=== PATIENT | female | born 1955 | race Caucasian/White ===

== ENCOUNTER → 2018-07-02 13:40 | Outpatient (CLI) | payer MEDICAID, SELFPAY ==
[2018-06-12 12:01] VITALS: BMI 31.6
--- NOTE | 2018-07-02 13:41 | ECHOCS_ITS ---
Reason For Study: Palpitations Procedure This was a 2D Doppler, Color Flow transthoracic echocardiogram. Contrast injection was performed. The study was technically difficult. Exam performed in department. Left Ventricle Normal size and thickness. The estimated ejection fraction is 65 %. Normal diastology for age. No regional wall motion abnormalities noted. Right Ventricle Normal size and thickness. Normal systolic function. Atria Normal left atrium. Normal right atrium. Normal atrial septum. Mitral Valve The mitral valve is structurally normal. No prolapse or stenosis seen. Tricuspid Valve Normal tricuspid valve. Trivial tricuspid valve insufficiency. Right ventricular systolic pressure estimated to be 27 mmHg. Aortic Valve Trisinus/trileaflet aortic valve. Normal aortic valve. Pulmonic Valve Normal pulmonic valve. Great Vessels Normal aortic root. Normal arch. Normal inferior vena cava. Inferior vena cava collapse with sniff. Pericardium/Pleural No pericardial effusion. Medication Definity0.6ml given slow IV push to enhance endocardial definition. MMode/2D Measurements & Calculations LVIDd: 4.9 cm IVSd: 1.0 cm Ao root diam: 3.1 cm LVIDs: 3.4 cm LVPWd: 1.1 cm LA dimension: 3.0 cm RVDd: 3.4 cm FS: 31.6 % LAV(MOD-bp): 46.5 ml LVAd ap4: 33.8 cm2 SV(MOD-sp4): 78.3 ml LAV(MOD-bp) Indexed: 23.6 ml/m2 EDV(MOD-sp4): 109.1 ml LAV(MOD-sp2): 59.0 ml EDV(sp4-el): 113.5 ml LAV(MOD-sp4): 34.4 ml LVAs ap4: 15.7 cm2 ESV(MOD-sp4): 30.9 ml ESV(sp4-el): 29.7 ml EF(MOD-sp4): 71.7 % EF(sp4-el): 73.8 % SV(sp4-el): 83.8 ml LA A4 area: 15.9 cm2 RA A4 area: 16.3 cm2 Doppler Measurements & Calculations MV E max neo: 78.9 cm/sec Lat Peak E' Neo: 7.4 cm/sec Med Peak E' Neo: 6.3 cm/sec MV A max neo: 60.4 cm/sec E/E' lat: 10.7 E/E' med: 12.6 MV E/A: 1.3 Ao V2 max: 126.8 cm/sec LV V1 max: 108.3 cm/sec PA V2 max: 82.0 cm/sec Ao max P.4 mmHg LV V1 max P.7 mmHg Ao V2 mean: 90.0 cm/sec Ao mean P.5 mmHg Ao V2 VTI: 26.6 cm TR max neo: 235.6 cm/sec TR max P.2 mmHg Interpretation Summary The estimated ejection fraction is 65 %. Normal diastology for age. Right ventricular systolic pressure estimated to be 27 mmHg. The study was technically difficult. There is no comparison study available. Contrast injection was performed. Ordering Physician: Daryl Jordan Referring Physician: Brayan Person Performed By: Radha Cohn, DORA, RVT
== END ==
PROVIDERS: Family Provider Family Medicine; PCP Family Medicine; Referring Provider Internal Medicine Cardiovascular Disease; Visit Provider Internal Medicine Cardiovascular Disease
DX: I49.3 Ventricular premature depolarization (principal)
CPT/HCPCS: 93306; Q9957; A4216; C8929

== ENCOUNTER → 2018-07-06 09:05 | Outpatient (CLI) | payer MEDICAID, SELFPAY ==
[2018-06-12 12:01] VITALS: BMI 31.6
--- NOTE | 2018-07-06 09:07 | STEWCON_ITS ---
Reason For Study: CHEST PAIN Stress Results Protocol: Stress Echocardiogram Maximum Predicted HR: 158 bpm Target HR: 134 bpm % Maximum Predicted HR: 84 % Heart Stage Duration Rate BP Comment (mm:ss) (bpm) DEFINITY 0.8 ML USED DURING STRESS, RARE PVC, BASELINE 54 140/84VENTRICULAR COUPLET BENNY PROTOCOL- STAGE 1 3:00 99 132/80RARE PVC BENNY PROTOCOL- STAGE 2 3:00 112 138/82 BENNY PROTOCOL- STAGE 3 3:00 133 150/80SL SOB, LEG FATIGUE RECOVERY 65 126/84 Stress Duration: 9:00 mm:ss Maximum Stress HR: 133 bpm Baseline Echocardiogram Findings The estimated ejection fraction is 65 %. Stress Echo Wall motion Data Resting WM Intermediate WM Stress WM Resting Wall Motion Wall Motion Stress No regional wall motion No regional wall motion abnormalities noted. abnormalities noted. EKG Data The baseline ECG displays normal sinus rhythm. The patient exercised according to the regular Benny protocol for a total duration of 9:00. The maximum heart rate attained was 133 beats per minute. This was 84% of maximum predicted heart rate. The patient exercised into stage 5 of the Benny protocol. During stress, there were no ST or T wave changes noted to suggest ischemia. No clinical angina was noted. Interpretation Summary The estimated ejection fraction is 65 %. Normal, adequate, treadmill echocardiogram. Negative for ischemia by EKG and echocardiographic criteria. No anginal symptoms noted. Rare PVCs noted. Appropriate blood pressure response to exercise. Average exercise capacity for age. Final LVEF of 75%. Decreased sensitivity due to poor echo windows requiring Definity enhancing agent. Test terminated due to attainment of target heart rate and leg fatigue as well as slight shortness of breath. No complications. Contrast injection was performed. The study was technically difficult. Ordering Physician: Daryl Jordan Referring Physician: Daryl Jordan Performed By: Radha Cohn, DORA, RVT
== END ==
PROVIDERS: Family Provider Family Medicine; PCP Family Medicine; Referring Provider Internal Medicine Cardiovascular Disease; Visit Provider Internal Medicine Cardiovascular Disease
DX: I49.3 Ventricular premature depolarization (principal)
CPT/HCPCS: 93017; 93350; Q9957; A4216; C8928

== ENCOUNTER → 2018-07-23 14:17 | Outpatient (CLI) | payer MEDICAID, SELFPAY ==
[2018-07-23 13:02] VITALS: BMI 31.6
[2018-07-23 16:40] LABS: Hematocrit 42.8 % (37-47); Hemoglobin 14.2 g/dl (12.0-15.0); Mean Corp Hgb Conc 33.2 g/gl (32-36); Mean Corpuscular Hgb 28.7 pg (27.0-32.0); Mean Corpuscular Volume 86.5 fL (81-99); Mean Platelet Vol. 9.5 fl (6.2-12.0); Platelet Count 269 K/mm3 (150-450); RBC Distribution Width CV 13.4 % (11.6-14.6); RBC Distribution Width SD 41.9 fl (35.1-43.9); Red Blood Count 4.95 M/mm3 (4.2-5.4); White Blood Count 9.2 K/mm3 (4.4-11.0)
[2018-07-23 16:46] LABS: Partial Thromboplast Time 24.7 Seconds (24.1-36.2); Prothrombin Time (Protime)PT. 12.8 SECONDS (11.7-14.9)
[2018-07-23 16:51] LABS: Scan Indicated on CBC? Y/N NO
[2018-07-23 17:03] LABS: Anion Gap 9 (5-15); BUN 10 mg/dL (7-18); BUN/Creat Ratio 11.6 RATIO (10-20); Calcium,Total 9.1 mg/dL (8.5-10.1); Chloride 105 mmol/L (98-107); Creatinine, Serum 0.86 mg/dL (0.55-1.02); EST Glomerular Filtration Rate 71 mL/min (>60); Est Glom Filt Rate - Afr Amer 86 mL/min (>60); Glucose 82 mg/dL (74-106); Potassium 4.4 mmol/L (3.5-5.1); Sodium Level 142 mmol/L (136-145)
== END ==
PROVIDERS: Family Provider Family Medicine; PCP Family Medicine; Visit Provider Internal Medicine Cardiovascular Disease
DX: I49.3 Ventricular premature depolarization (principal); I49.9 Cardiac arrhythmia, unspecified; R06.02 Shortness of breath; R07.9 Chest pain, unspecified
CPT/HCPCS: 36415; 80048; 85027; 85610; 85730

== ENCOUNTER 2018-07-26 06:42 | Day surgery (SDC) | payer MEDICAID, SELFPAY ==
[2018-06-12 12:01] VITALS: BMI 31.6
[2018-07-23 13:02] VITALS: BMI 31.6
--- NOTE | 2018-07-23 14:34 | RAD_ITS ---
HISTORY: SOB/dyspneaPain in upper right lung EXAM: XR Chest 2 Views: COMPARISON: None FINDINGS: # of images incl. paperwork: 2 LINES/DEVICES: None. LUNGS: Radiographically clear. No consolidation, edema or effusion. No pneumothorax. MEDIASTINUM AND CARDIOVASCULAR STRUCTURES: Cardiac silhouette not enlarged. Central airways and mediastinal contour are unremarkable. BONES AND SOFT TISSUES: Unremarkable. RAD/Chest PA and Lateral IMPRESSION: No radiographic evidence of acute cardiopulmonary disease. at 1544 Reported and signed by: Enzo Castillo MD Electronically Signed: Enzo Castillo, at 15:43 EST Tel , Service support ,
[2018-07-25 08:49] VITALS: BMI 32.3
[2018-07-26 10:56] LABS: ACT Activated Clotting Time 208 sec (74-137)
--- NOTE | 2018-07-26 10:58 | CL.I_ITS ---
Patient Name: VIVIENNE ALCANTAR Study Date: 07/26/2018 Performing: Daryl Jordan MD Ht: 66.14 inches 168 cm : 1955 Wt: 200.62 lbs 91 kg Age: 63 Gender: female BSA: 2.01 PROCEDURE(S) PERFORMED [id number]-XCM/COR/LV [id number], CORONARY OR GRAFT, INITIAL VESSEL CLINICAL PROFILE AND CO-MORBIDITIES Indications: New Onset Angina <= 2 months, Stable Known CAD, Cardiac Arrythmia Heart Failure: None Stress/Imaging Stress Echocardiogram: Yes Result: Negative Stress Echocardiogram: Negative Angina Classification Anginal Classification w/in 2 Weeks: CCS IV CAD Presentations: Unstable angina. Comorbidities/Risk Factors: Hypertension Dyslipidemia CONCLUSIONS Non obstructive coronary arteries Equivocal CAD found not significant by FFR RECOMMENDATIONS ASA Indefinitely Management as per referring Health Care Recruiter Successful Mynx closure. MEGHNA eval D/c plavix. Start zocor 20mg po qhs and repeat FLP in 6 weeks. DESCRIPTION OF PROCEDURE The patient arrived to the procedure lab. The risks and benefits of the procedure as well as a full d escription of our services here and lack of surgical backup were fully explained to the patient and/o r their significant other prior to the catheterization. The Timeout was completed, verifying the jeanmarie ect patient and procedure. The patient's procedural site was prepped and draped in the usual fashion. Local anesthetic was given subcutaneously to right groin region with Lidocaine 2%. Using a modified Seldinger technique, arterial access was obtained via the right femoral artery, a 4Fr sheath was inse rted. Left Coronary Artery selective angiography was performed in multiple views using a 4 Fr. JL5 c atheter. Right Coronary Artery selective angiography was then performed in multiple views using a 4 F r. 3DRC catheter. Left Ventriculography was performed in RIDLEY projection using a 4 Fr. Pigtail cathete r. LV to AO pullback pressures were then recordedThe images were reviewed and options discussed. A decision was then made to proceed with an Intervention, IVUS or other adjunct procedure. Arterial sheath was exchanged for a 6 Fr Sheath. HS II Guide catheter was inserted and engaged in to the RCA. The FFR/iFR wire was inserted. Adenosine was then given per protocol. Pressures and FFR/i FR were then recorded. FFR Ratio Baseline: 1.0 FFR Ratio post Adenosine: 0.91 The FFR/iFR wire was th en removed. Contrast was injected through the sheath and the Right Iliac and Femoral artery were asse ssed for possible closure device. The arterial sheath was pulled and a Mynx closure device was deplo yed for hemostasis CORONARY ANGIOGRAPHY DOMINANCE: Right Dominant LEFT HEART ASSESSMENT Left Ventricular Ejection Fraction: by LV Gram 65 % Normal Left Ventricular systolic function LVEDP: 9 mmHg Normal LV wall motion LEFT MAIN: Angiographically normal LEFT ANTERIOR DECENDING ARTERY: Mild luminal irregularities less than 30% CIRCUMFLEX ARTERY: Angiographically normal RIGHT CORONARY ARTERY: PROX RCA: 30 % Stenosis MID RCA: 60 % Stenosis INTERVENTION INFORMATION LESION SITE: RCA (Distal) Lesion Devices: FreeATM 6 Fr HSII 100cm Guide Catheter IGT Devices ( [facility] [place]) Coronary FFR Wire IGT Devices ( [employer] [place]) Coronary FFR Wire COMPLICATIONS No Complications PROCEDURE MEDICATIONS Versed 1 mg IV Oxygen: 2 L/min via nasal cannula Adenosine drip for FFR 25.5ml IV @ 07/26/2018 10:35:14 Heparin 6000 unit(s) IV 07/26/2018 10:15:45 Nitro 200 mcg IC 07/26/2018 10:10:36 Nitro 200 mcg IC 07/26/2018 10:10:36 Nitro 200 mcg IC 07/26/2018 10:18:20 SUMMARY OF HEMODYNAMIC DATA Time AIR REST ECG 07:12:39 AO 131/74 (96) SA 10:06:03 LV 142/-18, 9 10:13:52 LV 137/-14, 3 10:13:59 LVp 139/-22, 0 10:14:03 AOp 138/76 (100) 10:14:08 Signed By Daryl Jordan MD On 07/26/2018 10:56:32 AM Daryl Jordan MD
== END 2018-07-26 15:15 | disposition home or self-care (01) ==
LOC: CLSP 06:42
PROVIDERS: Family Provider Family Medicine; PCP Family Medicine; Referring Provider Internal Medicine Cardiovascular Disease; Visit Provider Internal Medicine Cardiovascular Disease
DX: I25.110 Atherosclerotic heart disease of native coronary artery with unstable angina pectoris (principal); I49.3 Ventricular premature depolarization; R07.89 Other chest pain; I10 Essential (primary) hypertension; E78.5 Hyperlipidemia, unspecified; F17.200 Nicotine dependence, unspecified, uncomplicated; Z79.899 Other long term (current) drug therapy; Z79.02 Long term (current) use of antithrombotics/antiplatelets; Z79.82 Long term (current) use of aspirin
CPT/HCPCS: 71046; 85347; 93458; 93571; 99152; 99153; C1760; J0153; J7040; Q9967; C1769; C1887; C1894

== ENCOUNTER → 2018-09-03 06:06 | Outpatient (CLI) | payer MEDICAID, SELFPAY ==
[2018-09-03 06:06] VITALS: BMI 31.6
[2018-09-03 08:32] LABS: AST(SGOT) 17 U/L (15-37); Alanine Aminotransfer ALT/SGPT 27 U/L (13-56); Albumin, Serum 3.7 g/dL (3.2-5.0); Alkaline Phosphatase 95 U/L (45-117); Bilirubin, Direct 0.28 mg/dL (0.00-0.30); Cholesterol 145 mg/dL (200); Globulin 3.5 g/dL (2.2-4.2); High Density Lipoprotein 42 mg/dL; Protein, Total 7.2 g/dL (6.4-8.2); Triglycerides 208 mg/dL; Very Low Density Lipoprotein 42 mg/dL (5-40)
== END ==
PROVIDERS: Family Provider Family Medicine; PCP Family Medicine; Referring Provider Internal Medicine Cardiovascular Disease; Visit Provider Internal Medicine Cardiovascular Disease
DX: E78.5 Hyperlipidemia, unspecified (principal)
CPT/HCPCS: 36415; 80061; 80076

== ENCOUNTER → 2019-02-28 07:33 | Outpatient (CLI) | payer MEDICAID, SELFPAY ==
[2019-01-21 14:47] VITALS: BMI 31.1
[2019-02-28 08:52] LABS: AST(SGOT) 12 U/L (15-37); Alanine Aminotransfer ALT/SGPT 18 U/L (13-56); Albumin, Serum 3.7 g/dL (3.2-5.0); Alkaline Phosphatase 96 U/L (45-117); Bilirubin, Direct 0.33 mg/dL (0.00-0.30); Cholesterol 132 mg/dL (200); Globulin 3.7 g/dL (2.2-4.2); High Density Lipoprotein 45 mg/dL; Protein, Total 7.4 g/dL (6.4-8.2); Triglycerides 132 mg/dL; Very Low Density Lipoprotein 26 mg/dL (5-40)
== END ==
PROVIDERS: Referring Provider Nurse Practitioner Family; Visit Provider Nurse Practitioner Family
DX: E78.5 Hyperlipidemia, unspecified (principal)
CPT/HCPCS: 36415; 80061; 80076

== ENCOUNTER → 2019-08-06 07:34 | Outpatient (CLI) | payer MEDICAID, SELFPAY ==
[2019-07-25 09:43] VITALS: BMI 31.6
--- NOTE | 2019-08-06 07:37 | ECHOCS_ITS ---
Reason For Study: AFIB Procedure This was a 2D Doppler, Color Flow transthoracic echocardiogram. The study was technically difficult. Contrast injection was performed. Exam performed in department. Left Ventricle Normal size and thickness. The estimated ejection fraction is 55 %. Unable to assess diastolic dysfunction. No regional wall motion abnormalities noted. Right Ventricle Normal size and thickness. Normal systolic function. Atria Normal left atrium. Normal right atrium. Normal atrial septum. Probable patent foramen ovale. Bubble contrast study negative for right to left interatrial shunt. Mitral Valve The mitral valve is structurally normal. No prolapse or stenosis seen. Mild (1+) mitral valve insufficiency. Tricuspid Valve Normal tricuspid valve. Trivial tricuspid valve insufficiency. Right ventricular systolic pressure estimated to be 33 mmHg. Aortic Valve Trisinus/trileaflet aortic valve. Mild focal aortic valve thickening. There is no aortic stenosis. Pulmonic Valve Normal pulmonic valve. Great Vessels Normal aortic root. Normal arch. Normal inferior vena cava. Inferior vena cava collapse with sniff. Pericardium/Pleural No pericardial effusion. Medication 22 gauge I.V. with prn adaptor inserted into right arm. Diluted definity 4.0ml given slow IV push to enhance endocardial definition. MMode/2D Measurements & Calculations LVIDd: 4.7 cm IVSd: 0.97 cm Ao root diam: 3.7 cm LVIDs: 3.5 cm LVPWd: 1.0 cm RVDd: 3.5 cm FS: 25.4 % LAV(MOD-bp): 62.4 ml LVAd ap4: 27.8 cm2 SV(MOD-sp4): 42.5 ml LAV(MOD-bp) Indexed: 31.9 ml/m2 EDV(MOD-sp4): 79.6 ml LAV(MOD-sp2): 67.8 ml EDV(sp4-el): 79.8 ml LAV(MOD-sp4): 53.1 ml LVAs ap4: 17.8 cm2 ESV(MOD-sp4): 37.0 ml ESV(sp4-el): 35.3 ml EF(MOD-sp4): 53.5 % EF(sp4-el): 55.7 % SV(sp4-el): 44.5 ml LA A4 area: 20.6 cm2 LA dimension(2D): 3.9 cm RA A4 area: 16.8 cm2 Doppler Measurements & Calculations Ao V2 max: 92.2 cm/sec LV V1 max: 59.4 cm/sec TR max marcio: 208.3 cm/sec Ao max P.5 mmHg LV V1 max P.4 mmHg TR max P.4 mmHg Interpretation Summary Unable to assess diastolic dysfunction. The estimated ejection fraction is 55 %. Bubble contrast study negative for right to left interatrial shunt. Probable patent foramen ovale with L to R crossover, but no evidence of R to L crossover by bubble study. Mild (1+) mitral valve insufficiency. Trivial tricuspid valve insufficiency. Right ventricular systolic pressure estimated to be 33 mmHg. /ompared to echo report dated 07/02/2018, LV function has decreased from 65% to 55%, and pt now appears to be in atrial fibrillation. The study was technically difficult. Contrast injection was performed. Ordering Physician: Daryl Jordan Referring Physician: RAHEEM TOURE Performed By: Lesli Christianson, DORA, RVT
--- NOTE | 2019-08-06 07:50 | RAD_ITS ---
STUDY: X-RAY CHEST REASON FOR EXAM: Female, 64 years old. PER PT- TOP PART OF HER HEART ISNT WORKING PROPERLY TECHNIQUE: PA and lateral views of the chest. COMPARISON: None. FINDINGS: The lungs are clear and expanded. There is no demonstrated pleural abnormality. Normal size heart. Normal mediastinum and xiang. Normal visualized pulmonary arteries. Normal visualized aortic arch and descending thoracic aorta. There are diffuse degenerative changes of the visualized thoracic spine. There is degenerative osteoarthritis of the bilateral shoulders. Right upper quadrant surgical clips. RAD/Chest PA and Lateral IMPRESSION: No acute cardiac pulmonary disease. Electronically Signed: Laurel Gillespie MD at 0:29 EST , Service support ,
[2019-08-06 08:15] LABS: Absolute Neutrophil Count 5.5 X10^3/uL (2.0-7.7); Basophil# 0.05 X10^3/uL; Basophil% 0.6 % (0-1); Eosinophil# 0.23 X10^3/uL; Eosinophils% 2.6 % (0-5); Hemoglobin 14.7 g/dL (12.0-15.0); Lymphocyte % 27.7 % (19-41); Mean Corp Hgb Conc 33.4 g/dL (32-36); Mean Corpuscular Hgb 28.8 pg (27.0-32.0); Mean Corpuscular Volume 86.1 fL (81-99); Mean Platelet Vol. 9.6 fl (6.2-12.0); Monocyte# 0.67 X10^3/uL; Monocyte% 7.4 % (0-10); NRBC Flagged by Analyzer 0 % (0-5); Neutrophil # 5.52 X10^3/uL (2.7-7.7); Neutrophil % 61.3 % (47-70); Platelet Count 287 K/mm3 (150-450); RBC Distribution Width CV 12.7 % (11.6-14.6); RBC Distribution Width SD 39.5 fl (35.1-43.9); Red Blood Count 5.11 M/mm3 (4.2-5.4)
[2019-08-06 08:43] LABS: AST(SGOT) 12 U/L (15-37); Alanine Aminotransfer ALT/SGPT 20 U/L (13-56); Albumin, Serum 3.6 g/dL (3.2-5.0); Alkaline Phosphatase 94 U/L (45-117); Anion Gap 3 (5-15); BUN 12 mg/dL (7-18); BUN/Creat Ratio 14.6 RATIO (10-20); Bilirubin, Direct 0.24 mg/dL (0.00-0.30); Calcium,Total 8.9 mg/dL (8.5-10.1); Chloride 110 mmol/L (98-107); Cholesterol 123 mg/dL (200); Creatinine, Serum 0.82 mg/dL (0.55-1.02); EST Glomerular Filtration Rate 75 mL/min (>60); Est Glom Filt Rate - Afr Amer 90 mL/min (>60); Globulin 3.6 g/dL (2.2-4.2); Glucose 99 mg/dL (74-106); High Density Lipoprotein 51 mg/dL; Potassium 4.3 mmol/L (3.5-5.1); Protein, Total 7.2 g/dL (6.4-8.2); Sodium Level 143 mmol/L (136-145); T4 Total, Thyroxin 8.6 ug/dL (4.8-13.9); Triglycerides 121 mg/dL; Very Low Density Lipoprotein 24 mg/dL (5-40)
== END ==
PROVIDERS: Referring Provider Internal Medicine Cardiovascular Disease; Visit Provider Internal Medicine Cardiovascular Disease
DX: I25.10 Atherosclerotic heart disease of native coronary artery without angina pectoris (principal); I48.91 Unspecified atrial fibrillation; I49.9 Cardiac arrhythmia, unspecified; E78.5 Hyperlipidemia, unspecified; R06.02 Shortness of breath; R07.9 Chest pain, unspecified; R00.2 Palpitations
CPT/HCPCS: 36415; 71046; 80048; 80061; 80076; 84436; 84443; 85025; 93306; Q9957; A4216; C8929

== ENCOUNTER → 2019-08-07 19:57 | Outpatient (CLI) | payer MEDICAID, SELFPAY ==
[2019-07-25 09:43] VITALS: BMI 31.6
== END ==
PROVIDERS: Referring Provider Internal Medicine Cardiovascular Disease; Visit Provider Internal Medicine Cardiovascular Disease
DX: G47.10 Hypersomnia, unspecified (principal)
CPT/HCPCS: 95810

== ENCOUNTER 2019-08-14 10:45 | Day surgery (SDC) | payer MEDICAID, SELFPAY ==
[2019-07-25 09:43] VITALS: BMI 31.6
[2019-08-13 09:53] VITALS: BMI 31.6
--- NOTE | 2019-08-14 13:19 | PRO.PCM_ITS ---
Problem List (1) New onset atrial fibrillation Status: Acute (2) Premature ventricular contractions Status: Acute Comment: 7% of scan per holter done 08/29/2017 @ [facility] (3) Chronic maxillary sinusitis Status: Chronic (4) History of left heart catheterization Status: Chronic Comment: Mild, nonobstructive CAD. FFR of RCA is negative per Dr. Jordan @ [facility] (5) Hyperlipidemia Status: Chronic (6) Palpitations Status: Chronic (7) Ventricular bigeminy Status: Chronic Comment: Noted while in hospital for pneumonia, on Levaquin and Zofran and had noted prolonged QT Procedure Report Date of Procedure: 08/14/19 CONSCIOUS SEDATION REPORT BRIEF HISTORY OF PRESENT ILLNESS: The patient is a 64-year-old female who presented to [facility] for an elective outpatient cardioversion due to underlying atrial fibrillation. The patient reports no PO intake since midnight. The patient does have a history of obstructive sleep apnea. The patient reports a history of smoking, but denies COPD. The patient denies any recent constitutional symptoms such as fevers, chills, nausea or vomiting. The patient denies previous anesthetic complications. Patient's last ejection fraction was 55%. Patient did report taking Eliquis on the day of testing PHYSICAL EXAMINATION: VITAL SIGNS: Reviewed and were acceptable. GENERAL: The patient is a female, in no apparent distress, speaking in full sentences. HEENT: Normocephalic, atraumatic. Mucous membranes are moist and pink. Good mouth opening noted. Trachea is midline. Good neck mobility. MP III CHEST: S1, S2 irregularly irregular. No murmurs, rubs or gallops were noted. LUNGS: Clear to auscultation bilaterally without appreciable wheezes, rales or rhonchi. ABDOMEN: Soft, nontender, nondistended. Positive bowel sounds. EXTREMITIES: There is no clubbing, cyanosis or edema. ASA Class: II DESCRIPTION OF PROCEDURE: After confirmation of informed consent, the patient's anesthesia plan was reviewed in detail. Propofol was chosen. Risks and benefits were reviewed and the patient agreed to proceed. At 11:28 AM, the patient was given 40 mg of propofol. The patient required a total of 70 mg of propofol throughout the procedure to achieve appropriate sedation. The patient achieved an appropriate level of sedation and received 2 attempt s synchronized cardioversion, at [address] Jordan at the bedside. This was successful in achieving normal sinus rhythm. The patient was monitored until 11:39 AM, at which time the patient reached their baseline mental status and function. The patient tolerated the procedure well. COMPLICATIONS: None ESTIMATED BLOOD LOSS: None RECOMMENDATIONS: Okay to recover in usual fashion. Code Visit [id number]: Other Procedure See Report - [id number] ? 11 minutes
--- NOTE | 2019-08-14 15:18 | CARDIOVERS_ITS ---
Cardioversion Cardioversion: DC cardioversion summary: Patient is a very pleasant 64-year-old female, who was brought to the Data Reduction Technician in the fasting state for elective DC cardioversion. The risk/benefits of the procedure were thoroughly explained the patient and informed consent was obtained. The defibrillator pads were placed in the AP position. With the assistance of Dr. Benny Jones, the patient received a total of 70 mg of IV propofol. Once adequate sedation was obtained the patient received a single biphasic 200 J synchronized shock which unfortunately did not convert her to normal sinus rhythm. As her sedation was stable, she received a second 300 J biphasic synchronized shock which converted from atrial fibrillation to normal sinus rhythm. Her rhythm remained durable, and the pacer pads were removed. The patient spontaneously awoke, moves all 4 extremities and tolerate procedure well. Conclusions: Successful Eliquis assisted DC cardioversion with first day 200 J followed by a 300 J synchronized biphasic shock which converted from atrial fibrillation to normal sinus rhythm. Patient will continue on current antihy pertensive and anticoagulation therapy. If she has reversion back to atrial fibrillation, would recommend flecainide addition followed by repeat cardioversion. Patient already in the procedure well. No complications, many thanks to Dr. Benny Jones.
== END 2019-08-14 12:40 | disposition home or self-care (01) ==
PROVIDERS: Referring Provider Internal Medicine Cardiovascular Disease; Visit Provider Internal Medicine Cardiovascular Disease
DX: I48.91 Unspecified atrial fibrillation (principal); I25.10 Atherosclerotic heart disease of native coronary artery without angina pectoris; E78.5 Hyperlipidemia, unspecified; I49.3 Ventricular premature depolarization; F17.210 Nicotine dependence, cigarettes, uncomplicated; Z79.82 Long term (current) use of aspirin
CPT/HCPCS: 92960; 93005; J7040

== ENCOUNTER → 2019-09-11 10:50 | Outpatient (CLI) | payer MEDICAID, SELFPAY ==
[2019-08-29 07:53] VITALS: BMI 31.6
[2019-09-11 11:17] VITALS: PULSE 107; PULSE 109; PULSE 85; PULSE 88; PULSE 94; PULSE 98; O2SAT 95; O2SAT 96; O2SAT 97
--- NOTE | 2019-09-12 05:50 | PCM.PSN.6M ---
PSN 6 Minute Walk Test - 6 Minute Walk Test 6 Minute Walk Test: 6 Minute Walk Test PSN:6-Minute Walk Test Start: 09/11/19 11:17 Freq: Status: Active Protocol: RESP.6MINW Document 09/11/19 11:17 [facility] (Rec: 09/11/19 11:22 [facility] [id number]) 6 Minute Walk Test Date Performed 09/11/19 Time Performed 11:00 Height 5 ft 6 in Weight: 87.09 kg Weight in Pounds 192.[address]: Nida Keys Assistive device used: None Pre-test Oxygen Delivery Method Room Air Pulse Ox (%) 95 Pulse Rate (60-100 beats/min) 85 Dyspnea Amarjit Scale (0-10) 0 Exertion Amarjit Scale (6-20) 11 1st minute Oxygen Delivery Method Room Air Pulse Ox (%) 95 Pulse Rate (60-100 beats/min) 98 2nd minute Oxygen Delivery Method Room Air Pulse Ox (%) 95 Pulse Rate (60-100 beats/min) 109 H 3rd minute Oxygen Delivery Method Room Air Pulse Ox (%) 96 Pulse Rate (60-100 beats/min) 88 4th minute Oxygen Delivery Method Room Air Pulse Ox (%) 96 Pulse Rate (60-100 beats/min) 94 5th minute Oxygen Delivery Method Room Air Pulse Ox (%) 96 Pulse Rate (60-100 beats/min) 109 H 6th minute Oxygen Delivery Method Room Air Pulse Ox (%) 97 Pulse Rate (60-100 beats/min) 107 H Post-test Oxygen Delivery Method Room Air Pulse Ox (%) 95 Pulse Rate (60-100 beats/min) 85 Dyspnea Amarjit Scale (0-10) 0 Exertion Amarjit Scale (6-20) 11 Full Laps Walked 18 Partial Lap, Number of Tiles Walked 7 Total Distance Walked (ft) 1069 - Interpretation Interpretation: The patient was able to ambulate 1069 feet over the course of 6 minutes on room air with no assistive devices or breaks. The patient experienced no significant desaturation, but did have a peak heart rate of 109 bpm. These findings are consistent with deconditioning. - Recommendations Recommendations: No supplemental oxygen is indicated at this time.
== END ==
PROVIDERS: Referring Provider Nurse Practitioner Acute Care; Visit Provider Nurse Practitioner Acute Care
DX: R06.02 Shortness of breath (principal)
CPT/HCPCS: 94618

== ENCOUNTER → 2019-09-12 09:36 | Outpatient (CLI) | payer MEDICAID, SELFPAY ==
[2019-08-29 07:53] VITALS: BMI 31.6
--- NOTE | 2019-09-12 10:32 | CT_ITS ---
STUDY: LOW DOSE CT LUNG CANCER SCREENING REASON FOR EXAM: Female, 64 years old. LUNG SCREEN, 30+ YR SMOKER, 1 PACK PER WEEK RADIATION DOSAGE (If Supplied By Facility): CTDIvol = ( 3.02 ) mGy, DLP = ( 104.58 ) mGycm TECHNIQUE: No contrast was administered. Low dose technique was utilized (average mAS-38 and kVp 120). 1.25 mm axial source images with a slice interval of 1.25-mm were reconstructed in lung windows. 2.5 mm axial source images with a slice interval of 2.5-mm were reconstructed in lung windows. 5.0 mm axial source images with a slice interval of 5.0-mm were reconstructed in soft tissue windows. Nodule measured using lung windows on PACS and/or independent workstation with automated measurement of minimum and maximum diameter. Nodule measurement reported as average diameter rounded to the nearest whole number. Growth is defined as an increase ins size of greater than 1.5 mm. COMPARISON: Comparison is made with prior chest radiograph dated August 06, 2019. NODULES: There is a 1 cm x 1 cm soft tissue density in the anterior aspect of the lingular segment of the left upper lobe inferiorly. This most likely represents focal scarring. Aorta: Calcified plaques at the level of the aortic arch. Coronary arteries: Coronary artery calcification. Mediastinal nodes: Small benign-appearing mediastinal lymph nodes. Other chest and abdominal findings: Degenerative changes of the thoracic spine. CT/Low Dose CT Lung Screening IMPRESSION: Lung-RADS category 2 - Continue annual screening with LDCT in 12 months. IMPORTANT NOTES FOR USE: ACR Lung-RADS Version 1.0 Assessment Categories Release Date: October 21, 2013 Category: Coded 0-4 bases on nodule(s) with highest degree of suspicion. Negative screen is defined as categories 1 and 2; a positive screen is defined as categories 3 and 4. Category 3 and 4A nodules that are unchanged on interval CT should be coded as category 2, and individuals returned to screening in 12 months. Category 4X: Category 3 or 4 nodules with additional imaging findings that increase the suspicion of lung cancer, such as spiculation, GGN that doubles in size in 1 year, enlarged lymph notes, etc. Category Modifiers: S (significant finding unrelated to lung cancer) and C (prior history of treated lung cancer) may be added to the 0-4 Lung-RADS Electronically Signed: Rodolfo Trent, at 11:38 EDT , Service support ,
--- NOTE | 2019-09-13 05:32 | PFTCOMP ---
COMPLETE PULMONARY FUNCTION TEST INTERPRETATION Brief HPI: Patient is a 64 year old female, currently under the care of Nida Keys, who presents to [facility] for complete pulmonary function tests secondary to diagnosis of dyspnea. Respiratory therapist reports good effort and reproducible results. Interpretation: Forced expiration spirometry shows a moderately severe large airways obstructive ventilatory defect with an FEV1 of 52% predicted. There is no significant bronchodilator response by strict ATS criteria. Spirograms are of good quality and plateau slowly, indicating slowly emptying areas of the lungs. The respiratory flow volume loop shows decreased expiratory flow rates at all lung volumes consistent with airway obstruction. Lung volumes by body plethysmography show an elevated total lung capacity at 6.76 L, 128% predicted. FRC and RV are elevated out of proportion. Lung volume measurements are consistent with hyperinflation and air-trapping. Diffusion capacity by carbon monoxide is decreased at 59% predicted. The airway resistance is elevated. No previous pulmonary function tests were available for review. Impression: Irreversible moderately severe large airways obstructive ventilatory defect with a symmetric reduction diffusion capacity, resulting in air trapping with hyperinflation, and a pattern consistent with possible COPD.
== END ==
PROVIDERS: Referring Provider Nurse Practitioner Acute Care; Visit Provider Nurse Practitioner Acute Care
DX: R06.02 Shortness of breath (principal); Z12.2 Encounter for screening for malignant neoplasm of respiratory organs; F17.210 Nicotine dependence, cigarettes, uncomplicated
CPT/HCPCS: 94060; 94726; 94729; G0297

== ENCOUNTER → 2019-09-19 10:00 | Outpatient (CLI) | payer MEDICAID, SELFPAY ==
[2019-08-29 07:53] VITALS: BMI 31.6
== END ==
PROVIDERS: Referring Provider Nurse Practitioner Acute Care; Visit Provider Nurse Practitioner Acute Care
DX: F17.210 Nicotine dependence, cigarettes, uncomplicated (principal)

== ENCOUNTER → 2019-10-07 08:49 | Outpatient (CLI) | payer MEDICAID, SELFPAY ==
[2019-09-26 13:09] VITALS: BMI 31.6
--- NOTE | 2019-10-07 07:25 | PET_ITS ---
EXAM TYPE: PET/CT Localization Skull Base to Mid-thigh INDICATION/HISTORY: ABNORMAL FINDINGS OF LUNG FIELD-initial PET COMPARISON: Low-dose chest CT 09/12/2019 TECHNIQUE: PET/CT was performed from the skull base to the mid thighs after the intravenous administration of 15 mCi of F-18 FDG. Preprocedure blood glucose was 97 mg/dl. Low dose CT images were obtained for attenuation correction and localization purposes. FINDINGS: Neck: No suspicious hypermetabolic activity. Chest: No suspicious hypermetabolic activity. The previously seen 1 cm nodular density in the inferior lingula is no longer visualized and there is no associated uptake in this region suggesting resolved atelectasis. Mild aortic calcifications. Mild to moderate coronary artery calcifications. Abdomen/pelvis: No suspicious hypermetabolic activity. Status post cholecystectomy. Colonic diverticulosis without evidence of acute diverticulitis. Mild aortic atherosclerotic disease. Bone marrow: No suspicious hypermetabolic activity. PET/PET/CT Tumor Base -Thigh Init IMPRESSION: No evidence of metabolically active malignancy. The previously seen 1 cm nodular density in the inferior lingula is no longer visualized and there is no associated uptake in this region suggesting resolved atelectasis. Electronically Signed: Kellie Rasmussen, at 11:00 EDT Tel , Service support ,
== END ==
PROVIDERS: Referring Provider Nurse Practitioner Acute Care; Visit Provider Nurse Practitioner Acute Care
DX: R91.8 Other nonspecific abnormal finding of lung field (principal)
CPT/HCPCS: 78815; A9552

== ENCOUNTER → 2019-10-31 08:38 | Outpatient (CLI) | payer MEDICAID, SELFPAY ==
[2019-10-28 09:18] VITALS: BMI 32.3
--- NOTE | 2019-10-31 08:40 | EKG12_ITS ---
Test Reason : AFIB Blood Pressure : / mmHG Vent. Rate : 080 BPM Atrial Rate : 087 BPM P-R Int : 000 ms QRS Dur : 082 ms QT Int : 396 ms P-R-T Axes : 000 -13 -40 degrees QTc Int : 456 ms Atrial fibrillation Nonspecific T wave abnormality Abnormal ECG Confirmed by ESTEFANY PARMAR, MACY ([id number]), television news video editor DEVIN FERRERA ([id number]) on 11/04/2019 2:43:51 PM Referred By: Daryl Jordan Confirmed By:RASHAD ALLISON MD
[2019-10-31 09:33] LABS: AST(SGOT) 15 U/L (15-37); Alanine Aminotransfer ALT/SGPT 35 U/L (13-56); Albumin, Serum 3.6 g/dL (3.2-5.0); Alkaline Phosphatase 86 U/L (45-117); Bilirubin, Direct 0.22 mg/dL (0.00-0.30); Cholesterol 169 mg/dL (200); Globulin 3.5 g/dL (2.2-4.2); High Density Lipoprotein 52 mg/dL; Protein, Total 7.1 g/dL (6.4-8.2); T4 Total, Thyroxin 11.2 ug/dL (4.8-13.9); Thyroid Stim Hormone (TSH) 3.27 uIU/mL (0.358-3.74); Triglycerides 190 mg/dL; Very Low Density Lipoprotein 38 mg/dL (5-40)
== END ==
PROVIDERS: Referring Provider Internal Medicine Cardiovascular Disease; Visit Provider Internal Medicine Cardiovascular Disease
DX: E78.00 Pure hypercholesterolemia, unspecified (principal); I48.91 Unspecified atrial fibrillation; I49.9 Cardiac arrhythmia, unspecified; R00.2 Palpitations
CPT/HCPCS: 36415; 80061; 80076; 84436; 84443; 93005

== ENCOUNTER 2019-11-20 09:03 | Day surgery (SDC) | payer MEDICAID, SELFPAY ==
[2019-10-28 09:18] VITALS: BMI 32.3
[2019-11-07 10:55] LABS: Anion Gap 5 (5-15); BUN 8 mg/dL (7-18); BUN/Creat Ratio 9.6 RATIO (10-20); Calcium,Total 8.9 mg/dL (8.5-10.1); Chloride 109 mmol/L (98-107); Creatinine, Serum 0.83 mg/dL (0.55-1.02); EST Glomerular Filtration Rate 74 mL/min (>60); Est Glom Filt Rate - Afr Amer 89 mL/min (>60); Glucose 93 mg/dL (74-106); Potassium 4.2 mmol/L (3.5-5.1); Sodium Level 142 mmol/L (136-145)
[2019-11-19 10:59] VITALS: BMI 32.3
--- NOTE | 2019-11-20 10:40 | CARDIOVERS_ITS ---
Cardioversion Cardioversion: DC cardioversion: The patient was brought to the Staff Reporter in the fasting state and the risk/benefits of the procedure were thoroughly explained to the patient and informed consent was obtained.EKG at baseline showed atrial fibrillation with controlled ventricular response.The defibrillator pads were placed in the AP position.With the assistance of Dr. Benny Jones, the patient was given a total of 40 mg of IV propofol. Once adequate sedation was obtained, the patient received a single biphasic 200 J synchronized shock which converted to normal sinus rhythm. The rhythm remained durable, and the patient spontaneously awoke, moves all 4 extremities and tolerated procedure well. Conclusions: Successful amiodarone and Eliquis assisted DC cardioversion with a single 200 J biphasic synchronized shock. Patient taught procedure well, awoke spontaneously, and had no complications. We will continue her on Eliquis and amiodarone going forward to preserve normal sinus rhythm.She will follow-up in our office in 1 week's time for an EKG.No complications.
--- NOTE | 2019-11-20 13:47 | PRO.PCM_ITS ---
Problem List (1) Dizziness Status: Acute (2) New onset atrial fibrillation Status: Acute (3) MEGHNA (obstructive sleep apnea) Status: Acute (4) Shortness of breath Status: Acute Comment: EF 55-60% per echo 08/16/2017, Normal valves (5) History of cardioversion Status: Chronic Comment: 08/14/2019,11/20/2019 (6) History of left heart catheterization Status: Chronic Comment: Mild, nonobstructive CAD. FFR of RCA is negative per Dr. Jordan @ [facility] (7) Hyperlipidemia Status: Chronic (8) Stage 2 moderate COPD by GOLD classification Status: Chronic (9) Tobacco use Status: Chronic Procedure Report Date of Procedure: 11/20/19 - Conscious sedation CONSCIOUS SEDATION REPORT BRIEF HISTORY OF PRESENT ILLNESS: The patient is a 64-year-old female who presented to [facility] for an elective outpatient cardioversion due to underlying atrial fibrillation. The patient reports no PO intake since midnight. The patient does not have a history of obstructive sleep apnea. The patient reports a history of smoking and COPD. The patient denies any recent constitutional symptoms such as fevers, chills, nausea or vomiting. The patient denies previous anesthetic complications. Patient's last known ejection fraction was 55%. Patient has been compliant with anticoagulation. PHYSICAL EXAMINATION: VITAL SIGNS: Reviewed and were acceptable. GENERAL: The patient is a female, in no apparent distress, speaking in full sentences. HEENT: Normocephalic, atraumatic. Mucous membranes are moist and pink. Good mouth opening noted. Trachea is midline. Good neck mobility. MP III CHEST: S1, S2 irregularly irregular. No murmurs, rubs or gallops were noted. LUNGS: Clear to auscultation bilaterally without appreciable wheezes, rales or rhonchi. ABDOMEN: Soft, nontender, nondistended. Positive bowel sounds. EXTREMITIES: There is no clubbing, cyanosis or edema. ASA Class: II DESCRIPTION OF PROCEDURE: After confirmation of informed consent, the patient's anesthesia plan was reviewed in detail. Propofol was chosen. Risks and benefits were reviewed and the patient agreed to proceed. At 10:27 AM, the patient was given 40 mg of propofol. The patient required a total of 60 mg of propofol throughout the procedure to achieve appropriate sedation. The patient achieved an appropriate level of sedation and received 1 attempt synchronized cardioversion, at [address] Jordan at the bedside. This was successful in achieving normal sinus rhythm. The patient was monitored until 10:40 AM, at which time the patient reached their baseline mental status and function. The patient tolerated the procedure well. COMPLICATIONS: None ESTIMATED BLOOD LOSS: None RECOMMENDATIONS: Okay to recover in usual fashion. 9xxxx: Other Procedure See Report - [id number]
== END 2019-11-20 11:30 | disposition home or self-care (01) ==
LOC: CLSP 09:04
PROVIDERS: Referring Provider Internal Medicine Cardiovascular Disease; Visit Provider Internal Medicine Cardiovascular Disease
DX: I48.91 Unspecified atrial fibrillation (principal); I25.10 Atherosclerotic heart disease of native coronary artery without angina pectoris; E78.5 Hyperlipidemia, unspecified; G47.33 Obstructive sleep apnea (adult) (pediatric); J44.9 Chronic obstructive pulmonary disease, unspecified; Z79.01 Long term (current) use of anticoagulants; Z87.891 Personal history of nicotine dependence
CPT/HCPCS: 36415; 80048; 92960; 93005; J7040

== ENCOUNTER → 2020-05-25 11:19 | Outpatient (CLI) | payer MEDICAID, SELFPAY ==
[2020-05-19 07:53] VITALS: BMI 33.9
[2020-05-25 12:51] LABS: AST(SGOT) 16 U/L (15-37); Alanine Aminotransfer ALT/SGPT 28 U/L (13-56); Albumin, Serum 4.1 g/dL (3.2-5.0); Alkaline Phosphatase 106 U/L (45-117); Cholesterol 224 mg/dL (200); Globulin 3.7 g/dL (2.2-4.2); High Density Lipoprotein 47 mg/dL; Protein, Total 7.8 g/dL (6.4-8.2); Triglycerides 228 mg/dL; Very Low Density Lipoprotein 46 mg/dL (5-40)
== END ==
PROVIDERS: Referring Provider Nurse Practitioner Family; Visit Provider Nurse Practitioner Family
DX: E78.00 Pure hypercholesterolemia, unspecified (principal)
CPT/HCPCS: 36415; 80061; 80076

== ENCOUNTER → 2020-06-25 09:30 | Outpatient (CLI) | payer MEDICAID, SELFPAY ==
[2020-05-29 09:13] VITALS: BMI 33.9
== END ==
PROVIDERS: PCP Family Medicine; Referring Provider Nurse Practitioner Acute Care; Visit Provider Nurse Practitioner Acute Care
DX: G47.33 Obstructive sleep apnea (adult) (pediatric) (principal)
CPT/HCPCS: 98960; G0463

== ENCOUNTER → 2020-08-15 10:47 | Outpatient (CLI) | payer MEDICAID, SELFPAY ==
[2020-05-29 09:13] VITALS: BMI 33.9
[2020-08-15 11:46] LABS: AST(SGOT) 17 U/L (15-37); Alanine Aminotransfer ALT/SGPT 30 U/L (13-56); Albumin, Serum 3.8 g/dL (3.2-5.0); Alkaline Phosphatase 90 U/L (45-117); Cholesterol 126 mg/dL (200); Globulin 3.5 g/dL (2.2-4.2); High Density Lipoprotein 49 mg/dL; Protein, Total 7.3 g/dL (6.4-8.2); Triglycerides 134 mg/dL; Very Low Density Lipoprotein 27 mg/dL (5-40)
== END ==
PROVIDERS: PCP Family Medicine; Referring Provider Nurse Practitioner Family; Visit Provider Nurse Practitioner Family
DX: I25.10 Atherosclerotic heart disease of native coronary artery without angina pectoris (principal); E78.5 Hyperlipidemia, unspecified
CPT/HCPCS: 36415; 80061; 80076

== ENCOUNTER → 2021-02-13 11:13 | Outpatient (CLI) | payer MEDICAID, SELFPAY ==
[2021-02-13 12:35] LABS: AST(SGOT) 22 U/L (15-37); Alanine Aminotransfer ALT/SGPT 39 U/L (13-56); Albumin, Serum 3.7 g/dL (3.2-5.0); Alkaline Phosphatase 91 U/L (45-117); Bilirubin, Direct 0.27 mg/dL (0.00-0.30); Cholesterol 152 mg/dL (200); Globulin 3.7 g/dL (2.2-4.2); High Density Lipoprotein 50 mg/dL; Protein, Total 7.4 g/dL (6.4-8.2); Triglycerides 150 mg/dL; Very Low Density Lipoprotein 30 mg/dL (5-40)
== END ==
PROVIDERS: PCP Family Medicine; Referring Provider Nurse Practitioner Family; Visit Provider Nurse Practitioner Family
DX: E78.00 Pure hypercholesterolemia, unspecified (principal)
CPT/HCPCS: 36415; 80061; 80076

== ENCOUNTER → 2021-05-14 17:50 | Outpatient (CLI) | payer MEDICARE, SELFPAY ==
--- NOTE | 2021-05-14 17:55 | CT_ITS ---
STUDY: LOW DOSE CT LUNG CANCER SCREENING REASON FOR EXAM: Female, 66 years old. Tobacco dependency. RADIATION DOSAGE (If Supplied By Facility): CTDIvol = ( 3.02 ) mGy, DLP = ( 108.35 ) mGycm TECHNIQUE: No contrast was administered. Low dose technique was utilized (average mAS-38 and kVp 120). 1.25 mm axial source images with a slice interval of 1.25-mm were reconstructed in lung windows. 2.5 mm axial source images with a slice interval of 2.5-mm were reconstructed in lung windows. 5.0 mm axial source images with a slice interval of 5.0-mm were reconstructed in soft tissue windows. Nodule measured using lung windows on PACS and/or independent workstation with automated measurement of minimum and maximum diameter. Nodule measurement reported as average diameter rounded to the nearest whole number. Growth is defined as an increase ins size of greater than 1.5 mm. COMPARISON: /CT scan, 10/07/2019. NODULES: Nodule #: 1 Density: Solid Lung location: Left lower lobe: Pleural-based Location in series: Series Number: 2 Image: 156 Size - D1 x D2 mm: 3 x 3 mm: 3 mm average diameter Margin: Smooth Shape: Brown Calcification: No Fat: No Temporal comparison: None Nodule #: 2 Density: Solid Lung location: Right lower lobe: { Location in series: Series Number: 2 Image: 160 Size - D1 x D2 mm: 6 x 4 mm: 5 mm average diameter Margin: Smooth Shape: Oval Calcification: No Fat: No Temporal comparison: None Total lung nodules (excluding granulomas): Dictated Emphysema: Mild emphysematous changes of the lung. Endobronchial lesion: Aorta: Normal atherosclerotic changes of the thoracic aorta which appears stable. No aneurysm. Coronary arteries: Mild stable coronary artery calcifications. Heart: Normal in size Pulmonary artery: Normal Mediastinal nodes: None Other chest and abdominal findings: Degenerative changes of the thoracic spine. CT/Low Dose CT Lung Screening IMPRESSION: Lung-RADS category 3 - Continue screening with LDCT in 6 months. IMPORTANT NOTES FOR USE: ACR Lung-RADS Version 1.1 Assessment Categories Release Date: 2018 Category: Coded 0-4 bases on nodule(s) with highest degree of suspicion. Negative screen is defined as categories 1 and 2; a positive screen is defined as categories 3 and 4. Category 3 and 4A nodules that are unchanged on interval CT should be coded as category 2, and individuals returned to screening in 12 months. Category 4X: Category 3 or 4 nodules with additional imaging findings that increase the suspicion of lung cancer, such as spiculation, GGN that doubles in size in 1 year, enlarged lymph notes, etc. Category Modifiers: S (significant finding unrelated to lung cancer) Electronically Signed: Joshua Gottlieb DO at 23:53 EST Tel [phone], Service support ,
== END ==
PROVIDERS: PCP Physician Assistant; Visit Provider Internal Medicine Critical Care Medicine
DX: Z12.2 Encounter for screening for malignant neoplasm of respiratory organs (principal); F17.211 Nicotine dependence, cigarettes, in remission
CPT/HCPCS: 71271

== ENCOUNTER 2021-10-11 09:59 | Outpatient (CLI) | payer MEDICAID, SELFPAY ==
[2021-10-11 11:34] LABS: AST(SGOT) 14 U/L (15-37); Alanine Aminotransfer ALT/SGPT 19 U/L (13-56); Albumin, Serum 3.8 g/dL (3.2-5.0); Alkaline Phosphatase 88 U/L (45-117); Bilirubin, Direct 0.24 mg/dL (0.00-0.30); Cholesterol 148 mg/dL (200); Globulin 3.5 g/dL (2.2-4.2); High Density Lipoprotein 46 mg/dL; Protein, Total 7.3 g/dL (6.4-8.2); Triglycerides 197 mg/dL; Very Low Density Lipoprotein 39 mg/dL (5-40)
== END 2021-10-11 23:59 | disposition home or self-care (01) ==
LOC: LAB 10:04
PROVIDERS: PCP Physician Assistant; Referring Provider Nurse Practitioner Family; Visit Provider Nurse Practitioner Family
DX: E78.00 Pure hypercholesterolemia, unspecified (principal)
CPT/HCPCS: 36415; 80061; 80076

== ENCOUNTER → 2021-10-25 | Outpatient (CLI) | payer MEDICARE, MEDICAID, SELFPAY ==
--- NOTE | 2021-10-25 07:49 | CT_ITS ---
STUDY: CT CHEST WITHOUT CONTRAST REASON FOR EXAM: Female, 66 years old. Follow-up lung nodules. RADIATION DOSAGE (If Supplied By Facility): CTDIvol = ( 13.90 ) mGy, DLP = ( 517.63 ) mGycm TECHNIQUE: Transaxial imaging was performed without the administration of intravenous contrast material. Individualized dose optimization techniques were used for this CT. COMPARISON: Comparison is made with prior examination 05/14/2021. FINDINGS: CHEST Stable small benign-appearing bilateral axillary lymph nodes. Stable 3 mm noncalcified nodule in the lateral aspect of the left lower lobe anteriorly as seen on axial image #78. Stable 3 mm noncalcified nodule in the peripheral lateral aspect of the right lower lobe as seen on axial image #85. There is no demonstrated pleural abnormality. There are calcifications of the coronary arteries. There are multiple small lymph nodes within the mediastinum, which are normal in size and morphology most compatible with reactive lymph hyperplasia. Normal hilar regions. Normal unenhanced pulmonary arteries. There is atherosclerotic calcification of the aortic arch. There are multi-level degenerative changes of the thoracic spine. The patient is status post cholecystectomy. CT/Chest without Contrast IMPRESSION: Stable examination. Electronically Signed: Rodolfo Trent MD at 10:46 EDT ,
== END | disposition home or self-care (01) ==
LOC: CT 07:42
PROVIDERS: PCP Physician Assistant; Visit Provider Nurse Practitioner Acute Care
DX: R91.8 Other nonspecific abnormal finding of lung field (principal)
CPT/HCPCS: 71250

== ENCOUNTER → 2022-04-12 | Outpatient (CLI) | payer MEDICARE, MEDICAID, SELFPAY ==
[2022-04-12 08:35] LABS: AST(SGOT) 14 U/L (15-37); Alanine Aminotransfer ALT/SGPT 22 U/L (13-56); Albumin, Serum 3.7 g/dL (3.2-5.0); Alkaline Phosphatase 91 U/L (45-117); Bilirubin, Direct 0.27 mg/dL (0.00-0.30); Cholesterol 152 mg/dL (200); Globulin 3.3 g/dL (2.2-4.2); High Density Lipoprotein 45 mg/dL; Triglycerides 183 mg/dL; Very Low Density Lipoprotein 37 mg/dL (5-40)
== END | disposition home or self-care (01) ==
PROVIDERS: PCP Family Medicine; Referring Provider Nurse Practitioner Family; Visit Provider Nurse Practitioner Family
DX: E78.00 Pure hypercholesterolemia, unspecified (principal)
CPT/HCPCS: 36415; 80061; 80076

== ENCOUNTER → 2022-04-14 | Outpatient (CLI) | payer MEDICARE, MEDICAID, SELFPAY ==
[2022-04-14 07:23] LABS: Absolute Neutrophil Count 4.5 X10^3/uL (2.0-7.7); Basophil# 0.05 X10^3/uL; Basophil% 0.7 % (0-1); Eosinophil# 0.17 X10^3/uL; Eosinophils% 2.3 % (0-5); Hematocrit 45.3 % (37-47); Hemoglobin 15.2 g/dL (12.0-15.0); Lymphocyte % 29.2 % (19-41); Mean Corp Hgb Conc 33.6 g/dL (32-36); Mean Corpuscular Hgb 28.8 pg (27.0-32.0); Mean Corpuscular Volume 85.8 fL (81-99); Mean Platelet Vol. 8.8 fl (6.2-12.0); Monocyte# 0.62 X10^3/uL; Monocyte% 8.2 % (0-10); NRBC Flagged by Analyzer 0 % (0-5); Neutrophil # 4.47 X10^3/uL (2.7-7.7); Neutrophil % 59.3 % (47-70); Platelet Count 287 K/mm3 (150-450); RBC Distribution Width CV 12.4 % (11.6-14.6); RBC Distribution Width SD 38.4 fl (35.1-43.9); Red Blood Count 5.28 M/mm3 (4.2-5.4); White Blood Count 7.5 K/mm3 (4.4-11.0)
[2022-04-14 07:58] LABS: Anion Gap 1 (5-15); BUN 12 mg/dL (7-18); BUN/Creat Ratio 13.7 RATIO (10-20); Chloride 109 mmol/L (98-107); Creatinine, Serum 0.88 mg/dL (0.55-1.02); EST Glomerular Filtration Rate 69 mL/min (>60); Est Glom Filt Rate - Afr Amer 83 mL/min (>60); Glucose 103 mg/dL (74-106); Magnesium 2.3 mg/dL (1.6-2.6); Potassium 4.5 mmol/L (3.5-5.1); Sodium Level 141 mmol/L (136-145); Thyroid Stim Hormone (TSH) 2.24 uIU/mL (0.358-3.74)
== END | disposition home or self-care (01) ==
LOC: LAB 07:00
PROVIDERS: PCP Family Medicine; Referring Provider Nurse Practitioner Family; Visit Provider Nurse Practitioner Family
DX: I48.0 Paroxysmal atrial fibrillation (principal); I49.49 Other premature depolarization
CPT/HCPCS: 36415; 80048; 83735; 84443; 85025

== ENCOUNTER → 2022-05-10 | Outpatient (CLI) | payer MEDICARE, MEDICAID, SELFPAY ==
--- NOTE | 2022-05-10 | IMM_PTH ---
PATIENT: VIVIENNE ALCANTAR LOC: [facility] U#:[id number] AGE/SX: 67/F ROOM: RE05/10/[address]: Dr. Patric Lindquist MD : 1955 BED: DIS: 05/10/2022 SPEC #: [id number] RECD: 05/11/22 10:11 STATUS: ROSSY RESherie #: [id number] SERVANDO: 05/10/22 00:[address]: Patric Lindquist DEPT: IMMUNOHISTOCHEMISTRY RECD BY: Brooke Leslie ENTERED: 05/11/22 10:12 SP TYPE: IMMUNO DYLAN DR: Eva Hanson PA-C Tissues: A - Uterine cervix, NOS B - Endocervical Procedures: p16 (initial) KI-67 (add) PHYSICIAN & INSTITUTION [facility] [phone] SPECIMEN INFORMATION: Tissue Source: A. Cervical biopsy, B. ECC Clinical Info: ASCUS, HPV + Specimen Number: [id number] A & B CPT code: 93673 x2, 69269 x2 METHODOLOGY: Deparaffinized sections of prefer/formalin-fixed tissue or PAP/DQ stained slides are incubated with monoclonal/polyclonal antibodies/oligonucleotide probes. Localization is made via biotin free immunoperoxidase method. Appropriate controls are performed and reacted as expected. Results on target cell population are indicated in the following table: RESULTS: ANTIBODY / CLONE RESULT Block A P16 (E6H4) negative Ki-67 (30-9) negative Block B P16 (E6H4) negative Ki-67 (30-9) negative These tests were developed and their performance characteristics determined by [facility]. They may not have been cleared or approved by the U.S. Food and Drug Administration. The FDA has determined that such clearance or approval is not necessary. The above immunohistochemical/dualISH markers are ordered and reviewed by the Pathologist. INTERPRETATION: A. Cervical biopsy: Negative for dysplasia B. ECC biopsy: Negative for dysplasia /SJ:cc 05/12/2022
--- NOTE | 2022-05-10 10:45 | CER_PTH ---
PATIENT: VIVIENNE ALCANTAR [facility] U#:[id number] AGE/SX: 67/F ROOM: RE05/10/[address]: Dr. Patric Lindquist MD : 1955 BED: DIS: 05/10/2022 SPEC #: [id number] RECD: 05/10/22 12:47 STATUS: ROSSY RESherie #: [id number] SERVANDO: 05/10/22 10:[address]: Patric Lindquist DEPT: SURGICAL PATHOLOGY RECD BY: Mimi Hernandez ENTERED: 05/10/22 13:17 SP TYPE: CERV OTHR DR: Eva Hanson PA-C Tissues: A - Uterine cervix, NOS B - Endocervical Procedures: Surgery Specimen Level IV HEADER OPERATION: Colposcopy PRE-OP DIAGNOSIS: ASCUS, HPV + TISSUE SUBMITTED: A. Cervical biopsy 2,5,7,11 o?clock, B. ECC MICROSCOPIC DIAGNOSIS A. Cervical biopsy 2,5,7,11 o?clock, biopsy: Negative for dysplasia. Focal chronic inflammation. See comment. B. ECC, biopsy; Fragments of benign ecto- and endocervical epithelium and mucous, negative for dysplasia. See comment. /CHERRY 1116/22 COMMENT A & B. The specimen predominantly consists of squamous mucosa. Immunohistochemistry ([id number]) supports the above diagnosis. Clinical correlation and appropriate follow-up are necessary. MICROSCOPIC DESCRIPTION Slides are reviewed. GROSS DESCRIPTION A. Received is one container labeled with the patient name and designated cervical. The specimen consists of multiple irregular fragments of light montero soft tissue mixed with mucoid tissue that in aggregate measure 2 x 0.5 x 0.1 cm. The specimen is totally submitted in one cassette. B. Received in formalin is one container labeled with the patient name and designated ECC. The specimen consists of multiple irregular fragments of light montero soft tissue mixed with mucoid tissue that in aggregate measure 2 x 0.5 x 0.1 cm. The specimen is totally submitted in one cassette. /CHERRY:marilyn 05/10/2022 TC:3 CPT: 48213 x2
== END | disposition home or self-care (01) ==
LOC: LABSPEC 11:09
PROVIDERS: PCP Family Medicine; Visit Provider Obstetrics & Gynecology
DX: R87.810 Cervical high risk human papillomavirus (HPV) DNA test positive (principal)
CPT/HCPCS: 88305; 88341; 88342

== ENCOUNTER → 2022-10-11 | Outpatient (CLI) | payer MEDICARE, MEDICAID, SELFPAY ==
[2022-10-11 08:59] LABS: AST(SGOT) 12 U/L (15-37); Alanine Aminotransfer ALT/SGPT 23 U/L (13-56); Albumin, Serum 3.6 g/dL (3.2-5.0); Alkaline Phosphatase 83 U/L (45-117); Bilirubin, Direct 0.21 mg/dL (0.00-0.30); Cholesterol 137 mg/dL (200); Globulin 3.3 g/dL (2.2-4.2); High Density Lipoprotein 41 mg/dL; Protein, Total 6.9 g/dL (6.4-8.2); Triglycerides 145 mg/dL; Very Low Density Lipoprotein 29 mg/dL (5-40)
== END | disposition home or self-care (01) ==
LOC: LAB 07:53
PROVIDERS: PCP Family Medicine; Referring Provider Nurse Practitioner Family; Visit Provider Nurse Practitioner Family
DX: E78.00 Pure hypercholesterolemia, unspecified (principal); I48.0 Paroxysmal atrial fibrillation; I49.49 Other premature depolarization
CPT/HCPCS: 36415; 80061; 80076

== ENCOUNTER → 2022-10-27 | Outpatient (CLI) | payer MEDICARE, MEDICAID, SELFPAY ==
--- NOTE | 2022-10-27 06:43 | CT_ITS ---
EXAM: CT CHEST WITHOUT INTRAVENOUS CONTRAST CLINICAL INDICATION: h/o Tobacco Dependency TECHNIQUE: Helically acquired images were obtained of the chest without intravenous contrast. This CT exam was performed using one or more of the following dose reduction techniques: automated exposure control, adjustment of the mA and/or kV according to patient size, and/or use of iterative reconstruction technique. COMPARISON: 10/25/2021 FINDINGS: LUNGS AND PLEURAL SPACES: Stable 3 mm pleural-based nodule in the left lower lobe, series 2 image 150. Stable 3 mm nodule in the periphery of the right lower lobe, series 2 image 174. No new nodules identified. No effusion or pneumothorax. HEART: Unremarkable. Heart size is normal. No pericardial effusion. Coronary artery calcifications. MEDIASTINUM: Unremarkable. No mediastinal or hilar adenopathy. Esophagus is unremarkable. No hiatal hernia. THYROID: Unremarkable. No thyroid lesions. BONES/JOINTS: Degenerative changes of the spine. No suspicious lytic or blastic abnormality. VASCULATURE: Unremarkable. Thoracic aorta is non-dilated. CT/Low Dose CT Lung Screening IMPRESSION: 1. Two stable 3 mm nodules as detailed above. No new nodules. ACR Lung CT Screening Reporting T Data System (Lung-RADS) score: 2 - Benign Appearance or Behavior. Recommend continued annual screening with low-dose CT (LDCT) in 12 months. 2. Coronary artery calcifications. Electronically Signed: Leon Sheehan MD at 7:32 EDT ,
== END | disposition home or self-care (01) ==
LOC: CT 06:42
PROVIDERS: PCP Family Medicine; Referring Provider Internal Medicine Critical Care Medicine; Visit Provider Internal Medicine Critical Care Medicine
DX: Z12.2 Encounter for screening for malignant neoplasm of respiratory organs (principal); Z87.891 Personal history of nicotine dependence
CPT/HCPCS: 71271

== ENCOUNTER → 2023-05-10 | Outpatient (CLI) | payer MEDICARE, MEDICAID, SELFPAY ==
[2023-05-10 10:25] LABS: AST(SGOT) 14 U/L (15-37); Alanine Aminotransfer ALT/SGPT 21 U/L (13-56); Albumin, Serum 3.7 g/dL (3.2-5.0); Alkaline Phosphatase 80 U/L (45-117); Bilirubin, Direct 0.24 mg/dL (0.00-0.30); Cholesterol 168 mg/dL (200); Globulin 3.6 g/dL (2.2-4.2); High Density Lipoprotein 57 mg/dL; Protein, Total 7.3 g/dL (6.4-8.2); Triglycerides 117 mg/dL; Very Low Density Lipoprotein 23 mg/dL (5-40)
== END | disposition home or self-care (01) ==
LOC: LAB 08:41
PROVIDERS: PCP Family Medicine; Referring Provider Nurse Practitioner Family; Visit Provider Nurse Practitioner Family
DX: E78.00 Pure hypercholesterolemia, unspecified (principal)
CPT/HCPCS: 36415; 80061; 80076

== ENCOUNTER → 2023-08-24 | Outpatient (CLI) | payer MEDICARE, MEDICAID, SELFPAY | END | disposition home or self-care (01) | LOC: SL 11:25 | PROVIDERS: PCP Family Medicine; Referring Provider Nurse Practitioner Acute Care; Visit Provider Nurse Practitioner Acute Care | DX: G47.33 Obstructive sleep apnea (adult) (pediatric) (principal) | CPT/HCPCS: 95806 ==

== ENCOUNTER → 2023-09-04 | Outpatient (CLI) | payer MEDICARE, MEDICAID, SELFPAY ==
--- OUTSIDE RECORDS SUMMARY | 2023-09-04 07:41 | XMS RPT_ITS | CCD ---
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 Name Role Phone Unavailable Primary Care Provider UnavailJustino Morley Primary Care Provider Suki Sarbjit Unavailable Milton, Antonio S Unavailable Suki Sarbjit Unavailable Milton, Eldorado S Unavailable Geri Fernandes Primary Care Provider Justino Cr MD Unavailable [facility] Attending Unavailable PHYSICIAN, NOT RECORDED Primary Care [facility] SukiSarbjit Unavailable Milton, Antonio S Unavailable Geri Fernandes Primary Care Provider Justino Cr MD Unavailable MILTON, ANTONIO S Referring Unavailable [facility] Primary Care Unavailable JUSTINO CR Attending Unavailable GRANVILLE, RAVI Attending Unavailable GRANVILLE, RAVI Consulting Unavailable GRANVILLE, RAVI Primary Care Unavailable GRANVILLE, RAVI Admitting Unavailable PROVIDER, UNKNOWN Consulting Unavailable GRANVILLE, RAVI Attending Unavailable GRANVILLE, RAVI Consulting Unavailable GRANVILLE, RAVI Primary Care Unavailable GRANVILLE, RAVI Admitting Unavailable PROVIDER, UNKNOWN Consulting Unavailable GRANVILLE, RAVI Attending Unavailable GRANVILLE, RAVI Consulting Unavailable GRANVILLE, RAVI Primary Care Unavailable GRANVILLE, RAVI Admitting Unavailable PROVIDER, UNKNOWN Consulting Unavailable DOMINGO SOUZA Attending Unavailable [facility] Primary Care Unavailable Allergies Allergy Classification Reported Allergen(s) Allergy Type Date of Onset Reaction(s) Facility (18 sources) Erythromycin; Translations: [ERYTHROMYCIN] Drug Allergy 0 Other: See Comments [facility] (18 sources) Latex; Translations: [LATEX] Drug Intolerance 0 Other: See Comments [facility] (18 sources) levoFLOXacin; Translations: [LEVOFLOXACIN] Drug Allergy 0 Other: See Comments [facility] (18 sources) Ondansetron; Translations: [ONDANSETRON] Drug Allergy 0 Other: See Comments [facility] (18 sources) zolpidem; Translations: [ZOLPIDEM] Drug Allergy 0 Other: See Comments, Mental Status Change [facility] (6 sources) Codeine; Translations: [CODEINE] Drug Allergy 1 Other: See Comments [facility] Work Phone: (6 sources) Lisinopril; Translations: [LISINOPRIL] Drug Allergy 1 Cough [facility] (1 source) Codeine Drug Allergy [facility] (1 source) Erythromycin Drug Allergy [facility] (1 source) levoFLOXacin Drug Allergy [facility] (1 source) Ondansetron Drug Allergy [facility] (1 source) zolpidem Drug Allergy [facility] Medications Current Medications Medication Drug Class(es) Dates Sig (Normalized) Sig (Original) amoxicillin 875 mg / clavulanate 125 mg oral tablet (1 source) Penicillin-class Antibacterial Start: 06-14-2022 End: 06-21-2022 amoxicillin-clavu lanic acid (AUGMENTIN) 875-125 mg per tablet Take 1 tablet by mouth twice daily for 7 days. FOR 7 DAYS. 14 tablet 0 06/14/2022 06/21/2022 Active Completed/Discontinued Medications Medication Drug Class(es) Dates Sig (Normalized) Sig (Original) amiodarone hydrochloride 200 mg oral tablet (12 sources) Antiarrhythmic take 1 tablet by krista th once daily amiodarone (PACERONE) 200 mg tablet Take 200 mg by mouth once daily. 0 Active Problems Active Problems Problem Classification Problem Date Documented Date Episodic/Chronic Cardiac dysrhythmias (17 sources) Persistent atrial fibrillation; Translations: [Other persistent atrial fibrillation] Onset: 03-02-2021 07-03-2020 Chronic Inflammatory diseases of female pelvic organs (2 sources) Acute vaginitis; Translations: [Acute vaginitis] Onset: 04-11-2022 Episodic Open wounds of extremities (1 source) Open wound of toe; Translations: [Unspecified open wound of unspecified toe(s) without damage to nail, initial encounter] Episodic Other aftercare (11 sources) Long-term current use of anticoagulant; Translations: [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] 07-03-2020 Episodic Other nutritional; endocrine; and metabolic disorders (4 sources) Obese class I; Translations: [Obesity, unspecified] Onset: 07-06-2020 08-25-2020 Chronic Other nutritional; endocrine; and metabolic disorders (5 sources) Obese class I; Translations: [Obesity, Class I, BMI 30-34.9] Onset: 07-06-2020 07-06-2020 Other skin disorders (1 source) Ingrowing toenail; Translations: [Ingrowing nail] Episodic Other skin disorders (1 source) Dystrophia unguium; Translations: [Nail dystrophy] Episodic Residual codes; unclassified (9 sources) Obstructive sleep apnea syndrome; Translations: [Obstructive sleep apnea (adult) (pediatric)] 07-03-2020 Chronic Residual codes; unclassified (5 sources) H/O cardiac surgery; Translations: [Other specified postprocedural states] Episodic Residual codes; unclassified (3 sources) At risk of disease; Translations: [At risk for stroke] 07-03-2020 Unclassified (5 sources) Drug therapy finding; Translations: [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] 07-03-2020 Unclassified (5 sources) Long-term current use of drug therapy; Translations: [penitentiary current use of antiarrhythmic drug] 07-03-2020 Unclassified (1 source) Other persistent atrial fibrillation; Translations: [Persistent atrial fibrillation (HCC)] Onset: 08-23-2020 Past or Other Problems Problem Classification Problem Date Documented Date Episodic/Chronic Cardiac dysrhythmias (6 sources) Palpitations; Translations: [Palpitations] Onset: 03-02-2021 Episodic Other aftercare (1 source) 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; Translations: [Anticoagulant long-term use] Onset: 08-23-2020 Episodic Residual codes; unclassified (8 sources) Other specified personal risk factors, not elsewhere classified; Translations: [Other specified personal history presenting hazards to health] Onset: 08-25-2020 07-03-2020 Episodic Residual codes; unclassified (1 source) Other specified postprocedural states; Translations: [Status post catheter ablation of atrial fibrillation] Onset: 08-24-2020 Episodic Results Test Name Value Interpretation Reference Range Facil it Vital Signs Date Time Vital Sign Value Performing Clinician Christ fuentes 11-17-2021 13:32-0400 Body height 167.6 cm Ravi Manzanares APRN.REFLEXOLOGIST Work Phone: [facility] 11-17-2021 13:32-0400 Body weight 90.72 kg Ravi Manzanares APRN.REFLEXOLOGIST Work Phone: [facility] 11-17-2021 13:32-0400 Diastolic blood pressure 75 mm[Hg] Ravi Manzanares APRN.REFLEXOLOGIST Work Phone: [facility] 11-17-2021 13:32-0400 Heart rate 58 /min Ravi Manzanares APRN.REFLEXOLOGIST Work Phone: [facility] 11-17-2021 13:32-0400 Respiratory rate 18 /min Ravi Manzanares APRN.REFLEXOLOGIST Work Phone: [facility] 11-17-2021 13:32-0400 SaO2% (BldA) [Mass fraction] 97 % Ravi Manzanares APRN.REFLEXOLOGIST Work Phone: [facility] 11-17-2021 13:32-0400 Systolic blood pressure 138 mm[Hg] Ravi Manzaanres APRN.REFLEXOLOGIST Work Phone: [facility] 07-06-2020 13:17-0500 Body weight 95.25 kg [facility] 07-06-2020 13:17-0500 BP Diastolic 94 mm[Hg] [facility] 07-06-2020 13:17-0500 BP Systolic 152 mm[Hg] [facility] 07-06-2020 13:050 Height 167.6 cm Justino Lirolando [facility] 07-06-2020 13:17-0500 Pulse (Heart Rate) 77 /min Justino Cr [facility] 07-06-2020 13:17050 Pulse Oximetry 97 % Justino Sahameron [facility] 07-06-2020 13:170500 Respiratory Rate 16 /min Justino Cr [facility] Encounters Encounter Date Encounter Type Care Provider Facility Start: 07-17-2023 End: 07-17-2023 ambulatory DOMINGO LIBBY Facility:[facility] Start: 05-31-2023 End: 05-31-2023 ambulatory [facility] Start: 05-17-2023 End: 05-17-2023 ambulatory [facility] Start: 12-02-2022 End: 12-02-2022 ambulatory ANTONIO S MILTON Facility:[facility] Start: 11-09-2022 End: 11-09-2022 ambulatory [facility] Start: 06-14-2022 End: 06-14-2022 Patient encounter procedure Paola Seymour Work Phone: Podiatry Procedures Date Procedure Procedure Detail Performing Clinician Start: 11-17-2021 Ecg routine ecg w/le ast 12 lds w/i&r Ravi Manzanares APRN.CNP Work Phone: Start: 07-09-2020 CARDIAC [facility] Prov[facility] Start: 07-06-2020 Ecg routine ecg w/le ast 12 lds w/i&r Justino Cr Work Phone: Start: 06-10-2020 EXTERNAL IMAGING 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 al Provider Start: 06-10-2020 End: 06-10-2020 EXTERNAL CARDIOLOGY External Provider Plan of Treatment Date Care Activity Detail Author Start: 08-25-2023 [facility] Start: 02-24-2022 Influenza vaccination C [facility] Start: 06-26-2021 ADVANCE DIRECTIVE DISCUSSION ADVANCE DIRECTIVE DISCUSSION [facility] Start: 06-26-2021 DEPRESSION ASSESSMENT DEPRESSION ASS ESSMENT [facility] Start: 2021 BONE DENSITY BONE DENSITY [facility] Start: 2021 PNEUMOCOCCAL: 65+ (1 - PCV) PNEUMOCOCCAL: 65+ (1 - PCV) [facility] Start: 02-25-2020 Influenza vaccination INFLUENZA (#1) [facility] Start: 2006 Screening for malign ant neoplasm of colon [facility] Start: 2006 SHINGRIX VACCINE (1 of 2) SHINGRIX V ACCINE (1 of 2) [facility] Start: 2001 COLOGUARD (FIT-DNA) COLOGUARD (FIT-D NA) [facility] Start: 2001 Colonoscopy COLONOSCOPY [facility] Start: 2001 COLORECTAL CANCER SCREENING COLORECTAL CANCER SCREENING [facility] Start: [address] COLONOGRAPHY [facility] Start: 2001 DIABETES SCREEN DIABETES SCREEN [facility] Start: 2001 FECAL OCCULT BLOOD FECAL OCCULT BLOO D [facility] Start: 2001 LIPID SCREEN LIPID SCREEN [facility] Start: 2001 SIGMOIDOSCOPY SIGMOIDOSCOPY [facility] Start: 1996 Mammography MAMMOGRAM [facility] Start: 1986 HPV TESTING HPV TESTING [facility] Start: 1977 PAP TESTING PAP TESTING [facility] Start: 1975 Urine microalbumin profile DTAP,TDAP ,TD (1 - Tdap) [facility] Start: 1974 HEPATITIS C SCREENING HEPATITIS C SC REENING [facility] Start: 1974 HIV SCREENING HIV SCREENING [facility] Start: 1968 Adult depression [facility] assessment DEPRESSION SCREENING [facility] Start: 1961 COVID-19 VACCINE (#1) COVID-19 VACCI NE (#1) [facility] Start: 1956 COVID-19 VACCINE (#1) COVID-19 VACCI NE (#1) [facility] Payers Date Payer Category Payer Private Health Insurance [id number] 2021 Medicaid MEDICAID [facility] MEDICAID [id number] 2021-Present [phone] [address] [place] [id number] Medicaid [id number] 2021 Medicaid [id number] 2021 Medicare [facility] MEDICARE [facility] DUAL COMPLETE HMO SNP [id number] 2021-Present [phone] [address] [place] [address] Medicare [id number] 2020 Medicaid [facility] [employer] [place] [id number] 2020-Present Medicaid [id number] 2020 Medicaid [id number] 1956 Unknown [id number] 1956 Unknown [id number] 1956 Unknown [id number] 1956 Unknown [id number] Social History Date Type Detail Facility Start: 06-09-2020 Tobacco smoking stat [facility] Current some day smoker [facility] Start: 06-09-2020 End: 07-06-2020 Tobacco use and exposure Never used [facility] Start: 06-09-2020 End: 07-06-2020 Alcohol intake Ex-drinker (finding) [facility] Start: 1955 Sex Assigned At Not on file [facility] Start: 07-06-2020 [facility] End: 06-26-2018 History of tobacco use Current smoker [facility] Start: 07-06-2020 Tobacco Comment never a heavy smoker [facility] Start: 11-07-2021 End: 05-24-2022 Exposure to SARS-CoV-2 (event) Not sure [facility] Start: 11-17-2021 End: 06-14-2022 Alcohol intake Current drinker of alcohol (finding) [facility] Start: 11-17-2021 History SDOH Alcohol Comment occasional [facility] End: 06-26-2018 History of tobacco use Cigarette Smoker [facility] Work Phone: Clinical Notes 08-25-2020 to 07-17-2023 Patient InstructionsMatthew Testrake - 06/14/2022 12:13 PM ESTTayler Waqas MAGUIRE - 06/14/2022 12:07 PM ESTTelephone Encounter - Arielle Valdovinos LPN - 05/31/2022 4:59 PM ESTPatient Instructions Note Date & Type Note Facility 07-17-2023 Note HNO ID: [id number] Author: DOMINGO SOUZA APRN.REFLEXOLOGIST Service: ? Author Type: Nurse Practitioner Type: Progress Notes Filed: 07/17/2023 08:44 Note Text: Global Manager offered: Patient declines. Lemus is a 68 year old who presents for an annual gynecologic exam without complaints. Postmenopausal: Yes HRT use: No. Last Pap: 2021 abnormal, ASCUS HPV: positive History of abnormal pap: Yes only in 2021 Last mammogram: 2022 normal History of abnormal mammogram: No Sexually active: No OB History T0 L0 SAB0 IAB0 Ectopic0 Multiple0 Live Births0 Comment: Adopted 2 children [employer] History LMP: Postmenopausal Age at Menarche: Age at First : Age at Menopause: [employer] History Comments: Sexual Activity: Not Currently; No partner data on record Contraception: No contraception data on record PAST MEDICAL HISTORY Diagnosis Date Anticoagulant long-term use At risk for stroke [id number] = 3 (age, +/-CAD, female gender) 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 nonobstuctive CAD by cardiac cath 2018 Dizziness and giddiness Lightheadedness 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 previously on amiodarone; indication: symptomatic atrial fibrillation 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 previously was on amiodarone; indication: symptomatic atrial fibrillation Mixed hyperlipidemia Obstructive sleep apnea CPAP Palpitations Persistent atrial fibrillation (HCC) diagnosed 06/2019; symptomatic; recurred after electrical cardioversion 07/2019; treated with amiodarone and repeat cardioversion 10/2019; recurrent arrhythmia, symptomatic, underwent successful catheter ablation procedure 2020 Premature ventricular contractions diagnosed about 2018 Status post catheter ablation of atrial fibrillation atrial fibrillation catheter ablation (balloon catheter cryoablation/PVAI) 08/24/2020; [facility] Dr. Cr Tobacco use disorder Ventricular bigeminy PAST SURGICAL HISTORY Procedure Laterality Date AFIB ABLATION/PULM VEIN ISOLATION 08/24/2020 atrial fibrillation catheter ablation (balloon catheter cryoablation/PVAI); [facility] Dr. Cr APPENDECTOMY CARDIOVERSION ELECTIVE ARRHYTHMIA INTERNAL SPX 11/20/2019 successful pentecostalism of sinus rhythm from atrial fibrillation on amiodarone therapy; [facility] CARDIOVERSION ELECTIVE ARRHYTHMIA INTERNAL SPX 08/14/2019 successful pentecostalism of sinus rhythm from atrial fibrillation; [facility] ECHOCARDIOGRAM 08/06/2019 LVEF 55% ECHOCARDIOGRAM 08/16/2017 HOLTER MONITOR 08/28/2017 LAPAROSCOPY, SURGICAL, ESOPHAGOGAST exploratory LEFT HEART CATH,PERCUTANEOUS 07/26/2018 moderate nonobstructive CAD: LAD 30% or less, prox RCA 30%; mid RCA 60% (FFR 0.91); [facility] REMOVAL GALLBLADDER 12/21/2010 REMOVAL OF OVARY(S) Left STRESS TEST NUCLEAR 2018 FAMILY HISTORY Problem Relation Age of Onset Cancer Mother lung cancer Hypertension Mother ? renal artery stenosis from patient description of problem Cancer Father Alcohol abuse Father other (cirrhosis of the liver) Father No Known Problems Sister Cancer Brother No Known Problems Brother SOCIAL HISTORY Social History Tobacco Use Smoking status: Former Types: Cigarettes Quit date: 2019 Years since quittin.0 Passive exposure: Never Smokeless tobacco: Never Tobacco comments: never a heavy smoker Vaping Use Vaping Use: Never used Substance Use Topics Alcohol use: Yes Comment: occasional Drug use: Not Currently REVIEW OF SYSTEMS Abdomen: No abdominal pain, nausea, vomiting, diarrhea, or constipation. No bloating, early satiety, indigestion, or increased flatulence. Bladder: No dysuria, gross hematuria, urinary frequency, urinary urgency, or incontinence Breast: No breast lumps, nipple d/c, overlying skin changes, redness or skin retraction Allergies and current medication updated:Yes EXAM: Ht 5' 6 (1.68m) Wt 211 lb 12.8 oz (96.1kg) BMI 34.20 kg/(m2). GENERAL: pleasant, female in no apparent distress HEENT: Normocephalic, atraumatic, mucus membranes moist, and no lesions NECK: Supple, full range of motion, no adenopathy, and thyroid normal DERMATOLOGY: Normal, without lesions, non-icteric, and non-hirsute BREAST: soft, non-tender, symmetric, no dominant mass, normal nipple-areolar complex, no lymphadenopathy, and no nipple discharge CHEST: Normal inspiratory effort ABDOMEN: soft, non-tender, and no masses PELVIC: external genitalia normal, normal Bartholin's glands, urethra, [place]'s glands, no vulvar lesions, no cervical lesions, good vaginal support, physiologic discharge present, normal appearing perineal body and perianal region BIMANUAL: uterus normal size, shape and consistency, no adnexal masses, and non-tender RECTOVAGINAL: deferred. NEURO: alert and oriented x3,exam grossly non-focal EXTREMITIES: normal (more content not included)... [facility] 12-02-2022 Note HNO ID: [id number] Author: Justino Cr MD Service: ? Author Type: Physician Type: Progress Notes Filed: 12/02/2022 1:25 PM Note Text: PRIMARY CARE PHYSICIAN: Geri Fernandes, [address] [place] [address] Patient Care Team: Ravi Hanson PA-C as PCP - General (Family Medicine) Sarbjit Cohn as Specialty Communications Consultant (Cardiology) Antonio Rose as Specialty Communications Consultant (Cardiology) Justino Cr MD as Specialty Communications Consultant (Cardiology) CHIEF COMPLAINT: Follow up for arrhythmia HISTORY OF PRESENT ILLNESS: Ms. Ernst is a 67 year old female who presents today for a cardiovascular medicine follow-up visit. History copied from previous notes, edited as needed: Dr. Cr's previous notes 07/06/2020: Ms. Ernst is a 65 year old female who presents today for evaluation of atrial fibrillation. She states that the atrial fibrillation was diagnosed in about June 2019, but she might have been experiencing symptoms prior to that even a couple years ago. She recalls about 3 years ago having flu like symptoms, and at some point was evaluated with a cardiac stress test that she states she was told was okay. She recalls having another test, possibly cardiac monitoring, that she never heard any results but later went to a different doctor who told her she had irregular beats on that test. She states at that time she was not told that she had atrial fibrillation but just some type of irregular heartbeats. At some point she was referred to a onion farmer for evaluation. As stated, in early 2019 she was found to have atrial fibrillation. She underwent electrical cardioversion in July 2019. She states she went to the doctor's office for an EKG about 1 week later and was found to be back in atrial fibrillation. She is not very aware of the arrhythmia, so she was not certain whether or not the arrhythmia has recurred. She does not experience palpitations, or any other clearly evident symptoms that she associates with the arrhythmia. At that point she was treated with amiodarone and then underwent repeat electrical cardioversion in late October 2019. Again, sinus rhythm was restored with the cardioversion but the atrial fibrillation was found to be recurrent by EKG about 1 week later. She does have a diagnosis of sleep apnea and for a while she was not using the CPAP therapy due to discomfort with the appliance, and particularly having trouble with the hose attachment coming off the bottom and she would become entangled in it when she moved in her sleep. She states that more recently she has an appliance that has a hose attachment at the top of the mask and she is better able to wear this appliance. She states she has been more consistently wearing the CPAP appliance over the past week and has been sleeping better. She states she has gained a lot of weight, possibly 50 pounds over the last year or two, due to inactivity. She states she becomes winded quickly when she is trying to be physically active. She does not experience chest symptoms such as pressure, pain, or tightness with activity. 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 Cardiac evaluations over the past couple of years include cardiac stress testing, echocardiogram, and a cardiac catheterization in 2019 that revealed moderate although nonobstructive CAD involving the RCA, mild disease in other vessels. She continues to take the amiodarone medication but she thinks she has been in the atrial fibrillation since a week after the last cardioversion in 10/2019. She denies chest pain, orthopnea, cough, palpitations, PND, lightheadedness or syncope. Additional history Floyd Moura, CYBER DEFENSE FORENSICS ANALYST 08/21/2020: At visit with Dr. Cr on 07/06/2020 he had a detailed discussion with her regarding atrial fibrillation and its management. He thought it was reasonable to consider her to have symptomatic atrial fibrillation and treat with a rhythm control approach, but since antiarrhythmic drug options are limited, catheter ablation considered a very reasonable option. She decided to proceed with catheter ablation. She stopped amiodarone as instructed on 07/06/2020 due to ineffectiveness. She is scheduled for EPS, PVI catheter ablation by Dr. Cr on 08/24/2020 and presents today for history and physical update. She states her blood pressure has been elevated recently and her onion farmer in [place] adjusted meds, started HCTZ 2 days ago. BP today 132/94. She denies palpitations but states sometimes she has a sudden feeling of anxiety in her chest for a few seconds. She states she has less shortness of breath since amiodarone stopped, but does get winded easily with activity. Denies any dizziness or lightheade (more content not included)... [facility] 06-14-2022 Instructions Paola Seymour - 06/14/2022 12:18 PM EST Continue with soaking of the toes until healed Apply topical antibiotic and band aide to the toe Take antibiotic as precaution If you have any issues, contact the office Can f/u prn or in 2-3 weeks documented in this encounter [facility] 06-14-2022 History of Present illness Narrative FOLLOW UP PODIATRIC OFFICE VISIT Chief Complaint: This 67 year old who presents for follow up:total nail matrixectoy of b/l 1st and 2nd toe. Patient presents to clinic for follow-up total nail matrixectomy of b/l 1st and 2nd toe She continues with soaking of the toe and antibiotic She is concerned that the toes are red that she may have infection Patient denies n/v/f/c. PAIN EVALUATION 06/14/2022 1209 Pain Level: 4 Pain Location: Toe Description: Sore Duration Amount of Time: 2 Duration Units: Weeks Frequency: Intermittent Intervention/Comfort measure: Reposition;Relaxation No results found for: HBA1C PCP: MARK Luevano PAST MEDICAL HISTORY Diagnosis Date Anticoagulant long-term use At risk for stroke [id number] = 2 (+/-CAD, female gender); will have another risk factor when she turns 66 years old 03/2021 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 nonobstuctive CAD by cardiac cath 2018 Dizziness and giddiness Lightheadedness 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 previously on amiodarone; indication: symptomatic atrial fibrillation [facility] current use of antiarrhythmic drug previously was on amiodarone; indication: symptomatic atrial fibrillation Mixed hyperlipidemia Obstructive sleep apnea CPAP Palpitations Persistent atrial fibrillation (HCC) diagnosed 06/2019; symptomatic; recurred after electrical cardioversion 07/2019; treated with amiodarone and repeat cardioversion 10/2019 Premature ventricular contractions diagnosed about 2018 Status post catheter ablation of atrial fibrillation atrial fibrillation catheter ablation (balloon catheter cryoablation/PVAI) 08/24/2020; [facility] Dr. Cr Tobacco use disorder Ventricular bigeminy Current Outpatient Medications Medication Sig aspirin 81 mg chewable tablet Take 81 mg by mouth once daily. omeprazole (PRILOSEC) 40 mg capsule Take 40 mg by mouth once daily. losartan (COZAAR) 50 mg tablet Take 50 mg by mouth once daily. Now taking 1/2 tab daily Multivitamin capsule Take 1 capsule by mouth once daily. omega 3-nha-elf-fish oil 300 mg (120 mg- 180mg)-1,000 mg cpDR Take 1 capsule by mouth once daily. simvastatin (ZOCOR) 20 mg tablet Take 20 mg by mouth daily at bedtime. No current facility-administered medications for this visit. ALLERGIES Allergen Reactions Codeine Other: See Comments Erythromycin Other: See Comments Latex Other: See Comments Levofloxacin Other: See Comments Cardiac arrhythmias, dizziness (was given with Zofran) Lisinopril Cough Ondansetron Other: See Comments Cardiac arrhythmias, dizziness. (was given with Levaquin) Zolpidem Mental Status Change Hallucinations PAST SURGICAL HISTORY Procedure Laterality Date AFIB ABLATION/PULM VEIN ISOLATION 08/24/2020 atrial fibrillation catheter ablation (balloon catheter cryoablation/PVAI); [facility] Dr. Cr APPENDECTOMY CARDIOVERSION ELECTIVE ARRHYTHMIA INTERNAL SPX 11/20/2019 successful pentecostalism of sinus rhythm from atrial fibrillation on amiodarone therapy; [facility] CARDIOVERSION ELECTIVE ARRHYTHMIA INTERNAL SPX 08/14/2019 successful pentecostalism of sinus rhythm from atrial fibrillation; [facility] ECHOCARDIOGRAM 08/06/2019 LVEF 55% ECHOCARDIOGRAM 08/16/2017 HOLTER MONITOR 08/28/2017 LAPAROSCOPY, SURGICAL, ESOPHAGOGAST exploratory LEFT HEART CATH,PERCUTANEOUS 07/26/2018 moderate nonobstructive CAD: LAD 30% or less, prox RCA 30%; mid RCA 60% (FFR 0.91); [facility] REMOVAL GALLBLADDER 12/21/2010 REMOVAL OF OVARY(S) Left STRESS TEST NUCLEAR 2017 Physical Exam: OBJECTIVE: Constitutional: Pt is a well developed 67 year old female who is alert, oriented, cooperative and in no apparent distress. Eyes: Following during examination. No redness or drainage. Respiratory: RR normal and nonlabored. Even breathing. No evidence of distress. Psychology: Patient is engaged during conversation. Normal affect and mood. Does not appear depressed or anxious. NVSI unchanged from previous visit. Dermatological: B/l halux and b/l 2nd toes s/p total nail matrixectomy. Nail beds appear to be healing. Mild periwound redness but resolves with elevation. No drainage. Musculoskeletal/Orthopaedic: Patient has minimal pain to palpation of b/l 1st and 2nd toe ASSESSMENT: (S91.109A) Open wound of toe, initial encounter (primary encounter diagnosis) PLAN: Patient is s/p total nail matrixectomy of toes 1-2 b/l. There is some redness present but this resolves with elevation. I ifnormed patient that redness and swelling are common following the application of phenol. The toes appear stable. I want her to continue with soaking and local wound care. She does have concerns for possible infection I will place her on antibiotic as precaution Can f/u in 2 weeks or prn Paola Seymour DPM AMB ROOMING INTAKE FLOWSHEET DATA Pain Pain Level: 4 Pain Location: Toe Description: Sore Duration Amount of Time: 2 Duration Units: Weeks Frequency: Intermittent Intervention/Comfort measure: Reposition, Relaxation Patient presents with: Left Great Toe - Follow Up, Avulsion Right Great Toe - Follow Up, Avulsion Left 2nd Toe - Follow Up Right 2nd Toe - Follow Up, Avulsion Patient is 2 wks s/p total matrixectomy, B/L hallux and B/L 2nd toes. C/o soreness. Has continued soaks and daily bandage changes but is concerned that toe is too red. documented in this encounter [facility] 05-31-2022 Miscellaneous Notes Patient updated, voiced understanding. Called patient regarding below message. No answer, VM left for patient to call office back. Would not recommend stopping the soaking altogether, but per Dr. Seymour she can decrease to once daily as needed. Patient called in questioning how long needs to soak feet in Epson salt twice a day, post nail removal by Dr Seymour, patient told for 2 weeks. Patient asked if can call if can be for less time. Informed patient someone will call back if if can be less then 2 weeks. Patient voiced understanding. Thank you. documented in this encounter [facility] 05-24-2022 Royer Seymour - 05/24/2022 8:49 AM EST Post-Op Nail Instructions Minimize activity until the anesthesia wears off (about 2-8 hours). Increase activity to tolerance Remove bandage tomorrow Soak affected toe/foot in epsom salts for 15-20 minutes twice daily After soaking, apply antibiotic ointment (OTC Neosporin) to affected toe and re bandage OTC Ibuprofen if having pain, provided you have no allergies or intolerance to NSAIDS Mild drainage, redness, and blood is expected, but if you expeirence severe pain, increase in drainage, swelling, or red streaking please contact our office immediately Feel free to contact office as well if you have any questions/concerns [phone], ask for Podiatry Nurse documented in this encounter [facility] 05-24-2022 History of Present illness Narrative FOLLOW UP PODIATRIC OFFICE VISIT Chief Complaint: This 67 year old who presents for follow up:ingrowing toenail of b/l 1st and 2nd toe Patient presents to clinic for follow-up ingrowing toenail of b/l 1st and 2nd toe She is here to have both great toes and b/l 2nd toenail removed She has pvr to review. PAIN EVALUATION No data found in the last 1 encounters. 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 Cr Tobacco use disorder Ventricular bigeminy Current Outpatient Medications Medication Sig aspirin 81 mg chewable tablet Take 81 mg by mouth once daily. omeprazole (PRILOSEC) 40 mg capsule Take 40 mg by mouth once daily. losartan (COZAAR) 50 mg tablet Take 50 mg by mouth once daily. Now taking 1/2 tab daily Multivitamin capsule Take 1 capsule by mouth once daily. omega 2-qlk-auv-fish oil 300 mg (120 mg- 180mg)-1,000 mg cpDR Take 1 capsule by mouth once daily. simvastatin (ZOCOR) 20 mg tablet Take 20 mg by mouth daily at bedtime. No current facility-administered medications for this visit. ALLERGIES Allergen Reactions Codeine Other: See Comments Erythromycin Other: See Comments Latex Other: See Comments Levofloxacin Other: See Comments Cardiac arrhythmias, dizziness (was given with Zofran) Lisinopril Cough Ondansetron Other: See Comments Cardiac arrhythmias, dizziness. (was given with Levaquin) Zolpidem Mental Status Change Hallucinations PAST SURGICAL HISTORY Procedure Laterality Date AFIB ABLATION/PULM VEIN ISOLATION 08/24/2020 atrial fibrillation catheter ablation (balloon catheter cryoablation/PVAI); [facility] Dr. Cr APPENDECTOMY CARDIOVERSION ELECTIVE ARRHYTHMIA INTERNAL SPX 11/20/2019 successful pentecostalism of sinus rhythm from atrial fibrillation on amiodarone therapy; [facility] CARDIOVERSION ELECTIVE ARRHYTHMIA INTERNAL SPX 08/14/2019 successful pentecostalism of sinus rhythm from atrial fibrillation; [facility] ECHOCARDIOGRAM 08/06/2019 LVEF 55% ECHOCARDIOGRAM 08/16/2017 HOLTER MONITOR 08/28/2017 LAPAROSCOPY, SURGICAL, ESOPHAGOGAST exploratory LEFT HEART CATH,PERCUTANEOUS 07/26/2018 moderate nonobstructive CAD: LAD 30% or less, prox RCA 30%; mid RCA 60% (FFR 0.91); [facility] REMOVAL GALLBLADDER 12/21/2010 REMOVAL OF OVARY(S) Left STRESS TEST NUCLEAR 2017 Physical Exam: OBJECTIVE: Constitutional: Pt is a well developed 67 year old female who is alert, oriented, cooperative and in no apparent distress. Eyes: Following during examination. No redness or drainage. Respiratory: RR normal and nonlabored. Even breathing. No evidence of distress. Psychology: Patient is engaged during conversation. Normal affect and mood. Does not appear depressed or anxious. NVSI unchanged from previous visit. Non-Invasive Vascular Laboratory [facility] Lower Extremity Arterial Physiology Study Bilateral/Complete Date of service/time: 05/12/2022 8:50:16 AM Name: VIVIENNE ERNST Date of : 1955 Age: 67 years Gender: F Clinical Indication Abnormal pulses. TECHNIQUE -------- An arterial physiological examination was performed, including measurement of blood pressures using continuous wave Doppler and recording of plethysmographic with or without Doppler waveforms at the below-mentioned limb segments. FINDINGS -------- RIGHT SIDE AT REST Right Doppler Waveforms Dorsalis pedis: Multiphasic. Post tibial: Multiphasic. Right Pressures Brachial: 129 mmHg Ankle dorsalis pedis: 133 mmHg FELIX: 1.03 Ankle posterior tibial: 131 mmHg FELIX: 1.02 Digit: 131 mmHg Right PVR Waveforms Ankle: Normal. Digit: Normal. LEFT SIDE AT REST Left Doppler Waveforms Dorsalis pedis: Multiphasic. Post tibial: Multiphasic. Left Pressures Brachial: 122 mmHg Ankle dorsalis pedis: 136 mmHg FELIX: 1.05 Ankle posterior tibial: 138 mmHg FELIX: 1.07 Digit: 142 mmHg Left PVR Waveforms Ankle: Normal. Digit: Normal. IMPRESSION RIGHT SIDE Resting right ankle brachial index: 1.03 Right toe brachial index: 1.02 Normal ankle brachial index at rest in the right leg. Normal toe brachial index at rest in the right leg. Right ankle: Normal at rest. LEFT SIDE Resting left ankle brachial index: 1.07 Left toe brachial index: 1.10 Normal ankle brachial index at rest in the left leg. Normal toe brachial index at rest in the left leg. Left ankle: Normal at rest. Technologist: Vanna Lisa RVT, [facility] Ordering physician: PAOLA SEYMOUR Interpreting physician: SUJIT Gill DO Dermatological: B/l first and 2nd toenail is thick and incurvated. No signs of infection. Webspaces clean and dry 1-4 b/l. Skin appears well hydrated and supple. good color, texture, turgor. No open lesions present. No callosities present. Musculoskeletal/Orthopaedic: Patient has pain to palpation of b/l 1st and 2nd toe ASSESSMENT: (L60.0) Ingrowing toenail (primary encounter diagnosis) (L60.3) Onychodystrophy PLAN: This patient has thickening of b/l 1st and 2nd toenail causing ingrown. We discussed options not limited to periodic debridement vs removal of toenail. She would prefer to have both 1st and 2nd toenail removed. Offered to do procedure 1-2 toes/visit vs doing in the operating room. This patient elected to do under local due to cardiac history. She would like to proceed with 1st and 2nd toenail removal today of b/l feet Discussed risks of toenail procedure not limited to infection, pain, swelling, bleeding, painful scarring, recurrence, need for revised procedure. Patient consented to proceed. Patient was properly identified by name and procedure. The right hallux was then injected with 3 cc of 1% lidocaine plain. The toe was then prepped and draped in the usual aseptic technique. A digital tournicot was applied to the toe. The entire nail was then freed and removed. Careful inspection was performed to assure no remaining spicule present. 3 applications of phenol were then administered x 30 seconds each followed by alcohol rinse. Sterile dressing was then applied consisting of amerigel, guaze, angelita and coban. Tournicot was removed and hyperemic response was noted. Patient tolerated well. Patient will f/u in 2 weeks. Discussed risks of toenail procedure not limited to infection, pain, swelling, bleeding, painful scarring, recurrence, need for revised procedure. Patient consented to proceed. Patient was properly identified by name and procedure. The left hallux was then injected with 3 cc of 1% lidocaine plain. The toe was then prepped and draped in the usual aseptic technique. A digital tournicot was applied to the toe. The entire nail was then freed and removed. Careful inspection was performed to assure no remaining spicule present. 3 applications of phenol were then administered x 30 seconds each followed by alcohol rinse. Sterile dressing was then applied consisting of amerigel, guaze, angelita and coban. Tournicot was removed and hyperemic response was noted. Patient tolerated well. Patient will f/u in 2 weeks. Discussed risks of toenail procedure not limited to infection, pain, swelling, bleeding, painful scarring, recurrence, need for revised procedure. Patient consented to proceed. Patient was properly identified by name and procedure. The right 2nd toe was then injected with 2 cc of 1% lidocaine plain. The toe was then prepped and draped in the usual aseptic technique. A digital tournicot was applied to the toe. The entire nail was then freed and removed. Careful inspection was performed to assure no remaining spicule present. 3 applications of phenol were then administered x 30 seconds each followed by alcohol rinse. Sterile dressing was then applied consisting of amerigel, guaze, angelita and coban. Tournicot was removed and hyperemic response was noted. Patient tolerated well. Patient will f/u in 2 weeks. Discussed risks of toenail procedure not limited to infection, pain, swelling, bleeding, painful scarring, recurrence, need for revised procedure. Patient consented to proceed. Patient was properly identified by name and procedure. The left 2nd toe was then injected with 2 cc of 1% lidocaine plain. The toe was then prepped and draped in the usual aseptic technique. A digital tournicot was applied to the toe. The entire nail was then freed and removed. Careful inspection was performed to assure no remaining spicule present. 3 applications of phenol were then administered x 30 seconds each followed by alcohol rinse. Sterile dressing was then applied consisting of amerigel, guaze, angelita and coban. Tournicot was removed and hyperemic response was noted. Patient tolerated well. Patient will f/u in 2 weeks. Patient presents with: Left Great Toe - Established Patient, Nail Fungus Left 2nd Toe - Established Patient, Nail Fungus Right Great Toe - Established Patient, Nail Fungus Right 2nd Toe - Established Patient, Nail Fungus Patient presents for total matrixectomy, B/L hallux and B/L 2nd toes. UNIVERSAL PROTOCOL / SAFETY CHECKLIST Procedure to be Performed: Total matrixectomy, B/L hallux, B/L second toes Sign In: A Moment of CARE was completed. Personnel directly involved with the procedure wore the appropriate PPE (Personal Protective Equipment). No special equipment needed. Patient/Surrogate Stated/Verified: PATIENT VERIFIED(optional for EMERGENT procedures): Patient name, Date of , Relevant allergies, and The intended procedure Time Out Communication: Intended patient and procedure match the source documents. Consent documented and matches the intended procedure. Relevant labs, photos, and/or imaging studies have been reviewed. Correct side/site marked and visible. Medications required for procedure verified. No fire risk assessment and interventions applicable. No implant(s) inserted. Sign Out: SIGN OUT (optional for EMERGENT procedures): No specimen collected. All instruments, equipment, possible retained foreign bodies accounted for. Post-procedure follow-up management communicated and Plan of Care Visit completed when applicable. Lashonda Alan RN documented in this encounter [facility] 04-13-2022 Note . MICRO - Microbiology PROCEDURE: Affirm Pathogens DNA Direct Probe [*1] SOURCE: Vaginal Fluid BODY SITE: Vagina COLLECTED DATE/TIME: 04/11/2022 11:35 EDT RECEIVED DATE/TIME: 04/12/2022 20:36 EDT START DATE/TIME: 04/12/2022 20:36 EDT FREE TEXT SOURCE: FINAL REPORTS Final Report [] Verified Date/Time/Personnel: 04/13/2022 13:29 EDT Josephine species DNA Probe Negative Gardnerella vaginalis DNA Probe Positive Trichomonas vaginalis DNA Probe Negative Performing Locations *1: This test was performed at: [address], [facility] , [facility] ([place]) 11-17-2021 Instructions Ravi Manzanares APRN.[facility] - 11/17/2021 1:52 PM EDT Atrial Fibrillation What is atrial fibrillation? Atrial fibrillation (also called A-fib) is a fast or irregular heartbeat that starts in the upper chambers of the heart. The abnormal heartbeat affects the ability of the heart to pump blood to the rest of the body. What is the cause? An electrical signal in your heart starts each heartbeat, causing the heart muscle to squeeze (contract). Normally, this signal starts in the upper right chamber of the heart (the right atrium) at a place called the sinus node. The signal then follows normal pathways to the upper left atrium and to the lower chambers of the heart (the ventricles). When you have atrial fibrillation, electrical signals don t start in the normal place in the right atrium and don t travel normally. This can cause the upper chambers of the heart (atria) to beat very fast and not in a normal pattern. Common causes of heart rhythm problems are conditions that damage the heart, like coronary artery disease, heart attack, or heart failure. Problems with the heart valves are another common cause. The heart has 4 valves that open and close with each heartbeat to help blood flow in the right direction through the heart. Other causes of atrial fibrillation include: Health problems, such as a stroke, lung disease, diabetes, overactive thyroid gland, or high blood pressure Abuse of alcohol or drugs, such as cocaine Sometimes no cause can be found. What are the symptoms? Some people don t have any symptoms. When atrial fibrillation does cause symptoms, the most common ones are: Feeling like your heart is beating too fast or too hard or skipping beats or fluttering Feeling tired or weak all the time Symptoms that are more serious include: Chest pain Trouble breathing Lightheadedness or dizziness confusion How is it diagnosed? Your healthcare provider will ask about your symptoms and medical history and examine you. Tests may include: An ECG (also called an EKG), which measures and records your heartbeat. You may have an ECG while you are resting or while you exercise on a treadmill. You may also be asked to wear a small portable ECG monitor for a few days or sometimes a couple weeks. Blood tests An echocardiogram, which uses sound waves (ultrasound) to show the structures of the heart, like the valves How is it treated? The goal of treatment is to help the heart keep a normal rhythm. Your treatment depends on the cause of the atrial fibrillation, how often you have symptoms, and the severity of your symptoms. If you have no symptoms, or your symptoms are fairly mild, you may not need treatment. For some people atrial fibrillation lasts just a short time and the heart goes back to a normal rhythm on its own. If you keep having spells of atrial fibrillation, treatment may help keep you from having so many spells. If a health problem like a leaky heart valve is causing the atrial fibrillation, treating the health problem may also treat the fast or irregular heartbeat. Other possible treatments are: Medicine: Your provider may prescribe medicine to slow or restore a normal heart rate and rhythm. You may also need medicine to prevent blood clots because when the heart beats irregularly, some of the blood can stay in the upper chambers too long. This makes it easier for blood clots to form, increasing your risk of having a stroke or heart attack. Electrical cardioversion: First, you will be given medicine called anesthesia to keep you from feeling pain during the procedure. Then your chest will be given an electrical shock. The electrical shock should make your heart start beating normally again. You may need medicine to keep your heart rhythm normal after this procedure. Ablation: Ablation is a procedure that uses a small tube called a catheter to deliver energy to the inside of the heart. The energy (usually radio waves) scars small areas of heart tissue. The scars block abnormal electrical pathways and help you have a normal heart rhythm. With some types of ablation treatment, you will also need a pacemaker. A pacemaker is an electronic device put under the skin of your chest to help control the heartbeat. How can I take care of myself? Take your medicines as prescribed. Keep your appointments for follow-up blood tests. Make sure your healthcare provider knows about changes in your diet or medical condition. Your provider also needs to know about all prescription and nonprescription medicines, herbs, or supplements that you are taking. Some medicines may interact with your heart medicine or increase your risk for atrial fibrillation. If you want to drink alcohol, ask your provider how much is safe for you to drink. Follow your healthcare provider's instructions. Ask your provider: ?How and when you will hear your test results ?How long it will take to recover ?What activities you should avoid and when you can return to your normal activities ?How to take care of yourself at home ?What symptoms or problems you should watch for and what to do if you have them Make sure you know when you should come back for a checkup. How can I help prevent atrial fibrillation? The best prevention is to have a heart-healthy lifestyle. Keep a healthy weight. Eat a healthy diet that is low in sodium and saturated and trans fat. Stay fit with the right kind of exercise for you. Decrease stress. Don t smoke. Limit your use of alcohol. If you have heart disease or high blood pressure, follow your healthcare provider's instructions for treatment. Copyright 2014 [employer] and/or one of its subsidiaries. All rights reserved. documented in this encounter [facility] 11-17-2021 Nurse Note Patient complains of mild (R) upper by shoulder pain, happens on/off documented in this encounter [facility] 11-17-2021 History of Present illness Narrative Images from the original note were not included. [facility] General Cardiology Electrophysiology PRIMARY CARE PHYSICIAN: Geri Fernandes, [facility] [address] [place] [address] CHIEF COMPLAINT: Cardiovascular medicine follow-up for arrhythmia. HISTORY OF PRESENT ILLNESS: History copied from previous notes, edited as needed: Dr. Cr's previous notes 07/06/2020: Ms. Ernst is a 65 year old female who presents today for evaluation of atrial fibrillation. She states that the atrial fibrillation was diagnosed in about June 2019, but she might have been experiencing symptoms prior to that even a couple years ago. She recalls about 3 years ago having flu like symptoms, and at some point was evaluated with a cardiac stress test that she states she was told was okay. She recalls having another test, possibly cardiac monitoring, that she never heard any results but later went to a different doctor who told her she had irregular beats on that test. She states at that time she was not told that she had atrial fibrillation but just some type of irregular heartbeats. At some point she was referred to a onion farmer for evaluation. As stated, in early 2019 she was found to have atrial fibrillation. She underwent electrical cardioversion in July 2019. She states she went to the doctor's office for an EKG about 1 week later and was found to be back in atrial fibrillation. She is not very aware of the arrhythmia, so she was not certain whether or not the arrhythmia has recurred. She does not experience palpitations, or any other clearly evident symptoms that she associates with the arrhythmia. At that point she was treated with amiodarone and then underwent repeat electrical cardioversion in late October 2019. Again, sinus rhythm was restored with the cardioversion but the atrial fibrillation was found to be recurrent by EKG about 1 week later. She does have a diagnosis of sleep apnea and for a while she was not using the CPAP therapy due to discomfort with the appliance, and particularly having trouble with the hose attachment coming off the bottom and she would become entangled in it when she moved in her sleep. She states that more recently she has an appliance that has a hose attachment at the top of the mask and she is better able to wear this appliance. She states she has been more consistently wearing the CPAP appliance over the past week and has been sleeping better. She states she has gained a lot of weight, possibly 50 pounds over the last year or two, due to inactivity. She states she becomes winded quickly when she is trying to be physically active. She does not experience chest symptoms such as pressure, pain, or tightness with activity. 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 Cardiac evaluations over the past couple of years include cardiac stress testing, echocardiogram, and a cardiac catheterization in 2019 that revealed moderate although nonobstructive CAD involving the RCA, mild disease in other vessels. She continues to take the amiodarone medication but she thinks she has been in the atrial fibrillation since a week after the last cardioversion in 10/2019. She denies chest pain, orthopnea, cough, palpitations, PND, lightheadedness or syncope. Additional history Floyd Moura APRN 08/21/2020: At visit with Dr. Cr on 07/06/2020 he had a detailed discussion with her regarding atrial fibrillation and its management. He thought it was reasonable to consider her to have symptomatic atrial fibrillation and treat with a rhythm control approach, but since antiarrhythmic drug options are limited, catheter ablation considered a very reasonable option. She decided to proceed with catheter ablation. She stopped amiodarone as instructed on 07/06/2020 due to ineffectiveness. She is scheduled for EPS, PVI catheter ablation by Dr. Cr on 08/24/2020 and presents today for history and physical update. She states her blood pressure has been elevated recently and her onion farmer in [place] adjusted meds, started HCTZ 2 days ago. BP today 132/94. She denies palpitations but states sometimes she has a sudden feeling of anxiety in her chest for a few seconds. She states she has less shortness of breath since amiodarone stopped, but does get winded easily with activity. Denies any dizziness or lightheadedness, syncope or near syncope, chest discomfort. We discussed A. fib triggers. She states she drinks a lot of caffeinated tea but has decreased from 1 gallon a day to a couple glasses a day and is ready to switch to decaf tea. She states she uses CPAP every night for sleep apnea. We discussed the upcoming ablation and I answered all her questions to her apparent satisfaction. She will have Covid test today. Additional history Floyd Martell, CYBER DEFENSE FORENSICS ANALYST 11/26/2020: Patient underwent EP study PVI cryo catheter ablation of atrial fibrillation by Dr. Cr on 08/24/2020. She was discharged home on 08/25/2020 and had symptoms of UTI at discharge which was treated by her PCP and symptoms have completely resolved. She has been monitoring blood pressure and heart rate twice daily per request of her onion farmer Dr. Cohn and BP 120 137/70 to 80s and heart rate 55 to 60s. She states she was not on medications for BP prior to diagnosis of atrial fibrillation last year and she has been calling in her results to Dr. Cohn's office every 2 weeks and a couple months ago lisinopril was discontinued in 1 month ago HCTZ was discontinued. She denies any further cough since lisinopril stopped. She states since the ablation she has more activity tolerance and less fatigue and overall feeling pretty good. She denies any palpitations, dizziness or lightheadedness, syncope or near syncope, chest discomfort. She has mild shortness of breath with exertion. 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 She is preparing to alter diet and exercise more to achieve weight loss. She states she walks and swims. She abstains from caffeine and alcohol. She had 3-month post ablation testing for echocardiogram and 24-hour Holter monitor done today. The echocardiogram was resulted shortly after the visit today so I called her with the result after the visit. Additional history Dr. Cr 03/03/2021: Ms. Ernst presents for follow-up evaluation for atrial fibrillation. She states that she has been doing well, not aware of recurrent arrhythmia. She denies chest pain, shortness of breath, orthopnea, palpitations, PND, lightheadedness or syncope. Interval History: The patient reports she has been well from a heart rhythm perspective, has not been aware of any atrial arrhythmia recurrence. After her last visit with Dr. Cr, she did discontinue the Eliquis after a detailed discussion was had. She has been taking a baby aspirin daily. She did inquire whether she needs to continue taking the losartan, will defer to her primary onion farmer and/or PCP, BP today is 138/75. She denies chest discomfort, palpitations, shortness of breath, lightheadedness, dizziness, near-syncope or syncope. 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 Cr Tobacco use disorder Ventricular bigeminy PAST SURGICAL HISTORY Procedure Laterality Date AFIB ABLATION/PULM VEIN ISOLATION 08/24/2020 atrial fibrillation catheter ablation (balloon catheter cryoablation/PVAI); [facility] Dr. Cr APPENDECTOMY CARDIOVERSION ELECTIVE ARRHYTHMIA INTERNAL SPX 11/20/2019 successful pentecostalism of sinus rhythm from atrial fibrillation on amiodarone therapy; [facility] CARDIOVERSION ELECTIVE ARRHYTHMIA INTERNAL SPX 08/14/2019 successful pentecostalism of sinus rhythm from atrial fibrillation; [facility] ECHOCARDIOGRAM 08/06/2019 LVEF 55% ECHOCARDIOGRAM 08/16/2017 HOLTER MONITOR 08/28/2017 LAPAROSCOPY, SURGICAL, ESOPHAGOGAST exploratory LEFT HEART CATH,PERCUTANEOUS 07/26/2018 moderate nonobstructive CAD: LAD 30% or less, prox RCA 30%; mid RCA 60% (FFR 0.91); [facility] REMOVAL GALLBLADDER 12/21/2010 REMOVAL OF OVARY(S) Left STRESS TEST NUCLEAR 2018 Social History Tobacco Use Smoking status: Former Smoker Quit date: 2018 Years since quittin.3 Smokeless tobacco: Never Used Tobacco comment: never a heavy smoker Vaping Use Vaping Use: Never used Substance Use Topics Alcohol use: Yes Comment: occasional Drug use: Not Currently Family History Problem Relation Age of Onset Cancer Mother lung cancer Hypertension Mother ? renal artery stenosis from patient description of problem Cancer Father Alcohol abuse Father other (cirrhosis of the liver) Father No Known Problems Sister Cancer Brother No Known Problems Brother ALLERGIES Allergen Reactions Codeine Other: See Comments Erythromycin Other: See Comments Latex Other: See Comments Levofloxacin Other: See Comments Cardiac arrhythmias, dizziness (was given with Zofran) Lisinopril Cough Ondansetron Other: See Comments Cardiac arrhythmias, dizziness. (was given with Levaquin) Zolpidem Mental Status Change Hallucinations MEDICATIONS: aspirin 81 mg chewable tablet Take 81 mg by mouth once daily. omeprazole (PRILOSEC) 40 mg capsule Take 40 mg by mouth once daily. losartan (COZAAR) 50 mg tablet Take 50 mg by mouth once daily. Now taking 1/2 tab daily Multivitamin capsule Take 1 capsule by mouth once daily. omega 8-qxf-tfe-fish oil 300 mg (120 mg- 180mg)-1,000 mg cpDR Take 1 capsule by mouth once daily. simvastatin (ZOCOR) 20 mg tablet Take 20 mg by mouth daily at bedtime. REVIEW OF SYSTEMS: Review of Systems Constitutional: Negative for chills, diaphoresis and fever. Respiratory: Negative for cough, hemoptysis, sputum production, shortness of breath and wheezing. Cardiovascular: Negative for chest pain, palpitations, orthopnea, leg swelling and PND. Gastrointestinal: Negative for abdominal pain, constipation, diarrhea, heartburn (controlled with medication), nausea and vomiting. Genitourinary: Negative for dysuria, frequency and urgency. Musculoskeletal: Negative for myalgias. Neurological: Negative for dizziness, loss of consciousness and headaches. PHYSICAL EXAMINATION: BP 138/75 Pulse 58 Resp 18 Ht 5' 6 (1.68m) Wt 200 lb (90.7kg) SpO2 97[room air]% BMI 32.30 kg/(m^2). Physical Exam Vitals and nursing note reviewed. Constitutional: General: She is not in acute distress. Appearance: She is not diaphoretic. HENT: Head: Normocephalic and atraumatic. Neck: Vascular: No carotid bruit or JVD. Cardiovascular: Rate and Rhythm: Normal rate and regular rhythm. Pulses: Radial pulses are 2+ on the right side and 2+ on the left side. Dorsalis pedis pulses are 2+ on the right side and 2+ on the left side. Heart sounds: S1 normal and S2 normal. No murmur heard. No gallop. Pulmonary: Effort: Pulmonary effort is normal. No respiratory distress. Breath sounds: Normal breath sounds. No wheezing or rales. Chest: Chest wall: No tenderness. Abdominal: General: Bowel sounds are normal. Palpations: Abdomen is soft. Musculoskeletal: General: Normal range of motion. Cervical back: Neck supple. Right lower leg: No edema. Left lower leg: No edema. Skin: General: Skin is warm and dry. Nails: There is no clubbing. Neurological: Mental Status: She is alert and oriented to person, place, and time. Psychiatric: Mood and Affect: Mood and affect normal. Behavior: Behavior normal. CARDIOVASCULAR MEDICINE TESTING: Echocardiogram: 11/27/2020 CONCLUSIONS: - Technically difficult exam due to body habitus. - Exam indication: Sustained atrial fibrillation - The left ventricle is normal in size. There is mild left ventricular hypertrophy. Left ventricular systolic function is normal. EF = 65 5% (2D biplane) Normal left ventricular diastolic function. - The right ventricle is normal in size. Right ventricular systolic function is normal. - The left atrial cavity is mildly dilated. - The right atrial cavity is mildly dilated. - There is no evidence of intracardiac shunting as detected by Doppler, agitated saline contrast and agitated saline contrast with valsalva (clips 80, 81). - The patient has not had a prior CC echocardiographic exam for comparison. Echocardiogram 06/05/2020 showed EF 55%, normal size and thickness of LV, normal biatrial size, probable PFO with left to right crossover but no evidence of right to left crossover by bubble study, no significant valvular pathology. I have personally reviewed the Electrocardiogram: 11/17/2021 -normal sinus rhythm, 62 bpm, IL 156 ms, QRS 76 ms, QT/QTc 448/454 ms. PLAN AND RECOMMENDATIONS: ASSESSMENT/PLAN: 1. Status post catheter ablation of atrial fibrillation - ICD9: V45.89, ICD10: Z98.890 (primary diagnosis) 2. Persistent atrial fibrillation (HCC) - ICD9: 427.31, ICD10: I48.19 -Diagnosed June/2019, reported symptoms prior to that; underwent DC cardioversion July/2019, had recurrence within about a week, was treated with amiodarone and underwent repeat DC cardioversion October/2019, again had recurrence within a week, with associated symptoms. Amiodarone was discontinued due to inefficacy; antiarrhythmic drug options limited given the failure of amiodarone; subsequently underwent cryoballoon catheter ablation of atrial fibrillation with Dr. Cr on 08/24/2020. The patient has been well from a heart rhythm perspective since her ablation procedure over 1 year ago. EKG today demonstrates normal sinus rhythm, 62 bpm. She is not on any rate control or rhythm control medications, she is taking a baby aspirin daily. She stopped taking the Eliquis after her last visit with Dr. Cr, per Dr. Cr's previous note, Dr. Cr had a detailed discussion with the patient about her risk profile and she has made an informed decision. We will have her follow-up in [address] Cr or CYBER DEFENSE FORENSICS ANALYST, or call sooner should any issues arise, patient verbalizes understanding. 3. Palpitations - ICD9: 785.1, ICD10: R00.2 - stable. 4. Premature ventricular contrations - ICD9: 427.69, ICD10: I49.3 - stable. 5. Anticoagulant long-term use - ICD9: V58.61, ICD10: Z79.01 6. At risk for stroke - ICD9: V15.89, ICD10: Z91.89 - Patient was previously treated with Eliquis, after her last follow-up with Dr. Cr, the medication was discontinued, and she takes a baby aspirin daily, see above. [id number] of 2 3 (age, female gender, mild nonobstructive CAD). If mild nonobstructive CAD is not considered a risk factor, then she has 2 risk factors age and female gender, which is considered borderline risk, much as a male patient with a score of one-point. Return in about 1 year (around 11/17/2022) for Dr. Cr or [facility]. Ravi Manzanares APRN.CNP The above note was partially created using a dictation recognition software. A reasonable attempt has been made to correct any errors. 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 08/25/2020 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 08/25/2020 documented as of this encounter (statuses as of 05/31/2022) [facility]03-02-2021 History of Past illness Narrative* Problem Noted Date Resolved Date 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 08/25/2020 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 08/25/2020 documented as of this encounter (statuses as of 06/14/2022) [facility] Diagnosis Status post catheter ablation of atrial fibrillation- Primary Persistent atrial fibrillation (HCC) Atrial fibrillation Palpitations Premature ventricular contractions Other premature beats Anticoagulant long-term use Long-term (current) use of anticoagulants At risk for stroke Other specified personal history presenting hazards to health [facility] Diagnosis Ingrowing toenail- Primary Ingrowing nail Onychodystrophy Other specified disease of nail [facility] Diagnosis Open wound of toe, initial encounter- Primary documented in this encounter [facility] Instructions * Patient Instructions* Justino Cr - 07/06/2020 2:27 PM EST Atrial Fibrillation What is atrial fibrillation? Atrial fibrillation (also called A-fib) is a fast or irregular heartbeat that starts in the upper chambers of the heart. The abnormal heartbeat affects the ability of the heart to pump blood to the rest of the body. What is the cause? An electrical signal in your heart starts each heartbeat, causing the heart muscle to squeeze (contract). Normally, this signal starts in the upper right chamber of the heart (the right atrium) at a place called the sinus node. The signal then follows normal pathways to the upper left atrium and tothe lower chambers of the heart (the ventricles). When you have atrial fibrillation, electrical signals don t start in the normal place in the right atrium and don t travel normally. This can cause the upper chambers of the heart (atria) to beat very fast and not in a normal pattern. Common causes of heart rhythm problems are conditions that damage the heart, like coronary artery disease, heart attack, or heart failure. Problems with the heart valves are another common cause. The heart has 4 valves that open and closewith each heartbeat to help blood flow in the right direction through the heart. Other causes of atrial fibrillation include: Health problems, such as a stroke, lung disease, diabetes, overactive thyroid gland, or high blood pressure Abuse of alcohol or drugs, such as cocaine Sometimes no cause can be found. What are the symptoms? Some people don t have any symptoms. When atrial fibrillation does cause symptoms, the most common ones are: Feeling like your heart is beating too fast or too hard or skipping beats or fluttering Feeling tired or weak all the time Symptoms that are more serious include: Chest pain Trouble breathing Lightheadedness or dizziness Confusion How is it diagnosed? Your healthcare provider will ask about your symptoms and medical history and examine you. Tests may include: An ECG (also called an EKG), which measures and records your heartbeat. You may have an ECG while you are resting or while you exercise on a treadmill. You may also be asked to wear a small portable ECG monitor for a few days or sometimes a couple weeks. Blood tests An echocardiogram, which uses sound waves (ultrasound) to show the structures of the heart, like the valves How is it treated? The goal of treatment is to help the heart keep a normal rhythm. Your treatment depends on the cause of the atrial fibrillation, how often you have symptoms, and the severity of your symptoms. If you have no symptoms, or your symptoms are fairly mild, you may not need treatment. For some people atrial fibrillation lasts just a short time and the heart goes back to a normal rhythm on its own. If you keep having spells of atrial fibrillation, treatment may help keep you from having so manyspells. If a health problem like a leaky heart valve is causing the atrial fibrillation, treating the health problem may also treat the fast or irregular heartbeat. Other possible treatments are: Medicine: Your provider may prescribe medicine to slow or restore a normal heart rate and rhythm. You may also need medicine to prevent blood clots because when the heart beats irregularly, some of the blood can stay in the upper chambers too long. This makes it easier for blood clots to form, increasing your risk of having a stroke or heart attack. Electrical cardioversion: First, you will be given medicine called anesthesia to keep you from feeling pain during the procedure. Then your chest will be given an electrical shock. The electrical shock should make your heart start beating normally again. You may need medicine to keep your heart rhythm normal after this procedure. Ablation: Ablation is a procedure that uses a small tube called a catheter to deliver energy to theinside of the heart. The energy (usually radio waves) scars small areas of heart tissue. The scars block abnormal electrical pathways and help you have a normal heart rhythm. With some types of ablation treatment, you will also need a pacemaker. A pacemaker is an electronic device put under the skin of your chest to help control the heartbeat. How can I take care of myself? Take your medicines as prescribed. Keep your appointments for follow-up blood tests. Make sure your healthcare provider knows about changes in your diet or medical condition. Your provider also needs to know about all prescription and nonprescription medicines, herbs, or supplements that you are taking. Some medicines may interact with your heart medicine or increase your risk for atrial fibrillation. If you want to drink alcohol, ask your provider how much is safe for you to drink. Follow your healthcare provider's instructions. Ask your provider: ?How and when you will hear your test results ?How long it will take to recover ?What activities you should avoid and when you can return to your normal activities ?How to take care of yourself at home ?What symptoms or problems you should watch for and what to do if you have them Make sure you know when you should come back for a checkup. How can I help prevent atrial fibrillation? The best prevention is to have a heart-healthy lifestyle. Keep a healthy weight. Eat a healthy diet that is low in sodium and saturated and trans fat. Stay fit with the right kind of exercise for you. Decrease stress. Don t smoke. Limit your use of alcohol. If you have heart disease or high blood pressure, follow your healthcare provider's instructions for treatment. Developed by [employer]. Published by [employer]. Copyright 2014 [employer] and/or one of its subsidiaries. All rights reserved. documented in this encounter History of Present Illness * Justino Cr - 07/06/2020 1:20 PM EST PRIMARY CARE PHYSICIAN: Justino Person MD ([facility]) [address] [place] [address] [place] [address] REFERRING PHYSICIAN: Sarbjit Cohn NP [address] [address] Patient Care Team: Justino Person as PCP - General (Family Practice) Sarbjit Cohn as Specialty Communications Consultant (Cardiology) Antonio Rose as Specialty Communications Consultant (Cardiology) CHIEF COMPLAINT: Evaluation of atrial fibrillation HISTORY OF PRESENT ILLNESS: Ms. rEnst is a 65 year old female who presents today for evaluation of atrial fibrillation. She states that the atrial fibrillation was diagnosed in about June 2019, but she might have been experiencing symptoms prior to that even a couple years ago. She recalls about 3 years ago having flu likesymptoms, and at some point was evaluated with a cardiac stress test that she states she was told was okay. She recalls having another test, possibly cardiac monitoring, that she never heard any results but later went to a different doctor who told her she had irregular beats on that test. She states at that time she was not told that she had atrial fibrillation but just some type of irregular heartbeats. At some point she was referred to a onion farmer for evaluation. As stated, in early 2019 she was found to have atrial fibrillation. She underwent electrical cardioversion in July 2019. She states she went to the doctor's office for an EKG about 1 week later and was found to be back in atrial fibrillation. She is not very aware of the arrhythmia, so she was not certain whether or not the arrhythmia has recurred. She does not experience palpitations, or any other clearly evident symptoms that she associates with the arrhythmia. At that point she was treated with amiodarone and then underwent repeat electrical cardioversion in late October 2019. Again, sinus rhythm was restored with the cardioversion but the atrial fibrillation was found to be recurrent by EKG about 1 week later.She does have a diagnosis of sleep apnea and for a while she was not using the CPAP therapy due to discomfort with the appliance, and particularly having trouble with the hose attachment coming off the bottom and she would become entangled in it when she moved in her sleep. She states that more recently she has an appliance that has a hose attachment at the top of the mask and she is better able to wear this appliance. She states she has been more consistently wearing the CPAP appliance over the past week and has been sleeping better. She states she has gained a lot of weight, possibly 50 pounds over the last year or two, due to inactivity. She states she becomes winded quickly when she is trying to be physically active. She does not experience chest symptoms such as pressure, pain, or tightness with activity. 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 Cardiac evaluations over the past couple of years include cardiac stress testing, echocardiogram, and a cardiac catheterization in 2018 that revealed moderate although nonobstructive CAD involving the RCA, mild disease in other vessels. She continues to take the amiodarone medication but she thinks she has been in the atrial fibrillation since a week after the last cardioversion in 10/2019. She denies chest pain, orthopnea, cough, palpitations, PND, lightheadedness or syncope. I have confirmed and edited as necessary, the PFSH and ROS obtained by others. 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 nonobstuctive CAD by cardiac cath 2018 Dizziness and giddiness Lightheadedness 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 indication: symptomatic atrial fibrillation penitentiary current use of antiarrhythmic drug amiodarone; indication: symptomatic atrial fibrillation Mixed hyperlipidemia Obstructive sleep apnea CPAP Palpitations Persistent atrial fibrillation (HCC) diagnosed 06/2019; symptomatic; recurred after electrical cardioversion 07/2019; treated with amiodarone and repeat cardioversion 10/2019 Premature ventricular contractions diagnosed about 2017 Tobacco use disorder Ventricular bigeminy PAST SURGICAL HISTORY Procedure Laterality Date APPENDECTOMY CARDIOVERSION, ELECTIVE, ELECTRICAL 11/20/2019 successful pentecostalism of sinus rhythm from atrial fibrillation on amiodarone therapy; [facility] CARDIOVERSION, ELECTIVE, ELECTRICAL 08/14/2019 successful pentecostalism of sinus rhythm from atrial fibrillation; [facility] ECHOCARDIOGRAM 08/06/2019 LVEF 55% ECHOCARDIOGRAM 08/16/2017 HOLTER MONITOR 08/28/2017 LAPAROSCOPY, SURGICAL, ESOPHAGOGAST exploratory LEFT HEART CATH,PERCUTANEOUS 07/26/2018 moderate nonobstructive CAD: LAD 30% or less, prox RCA 30%; mid RCA 60% (FFR 0.91); [facility] REMOVAL GALLBLADDER 12/21/2010 REMOVAL OF OVARY(S) Left STRESS TEST NUCLEAR 2018 SOCIAL HISTORY Social History Tobacco Use Smoking status: Former Smoker Quit date: 2018 Years since quittin.0 Smokeless tobacco: Never Used Tobacco comment: never a heavy smoker Substance Use Topics Alcohol use: Not Currently Drug use: Not Currently FAMILY HISTORY Problem Relation Age of Onset Cancer Mother lung cancer Hypertension Mother ? renal artery stenosis from patient description of problem Cancer Father Alcohol abuse Father other (cirrhosis of the liver) Father No Known Problems Sister Cancer Brother No Known Problems Brother ALLERGIES: ALLERGIES Allergen Reactions Erythromycin Other: See Comments Latex Other: See Comments Levofloxacin Other: See Comments Cardiac arrhythmias, dizziness (was given with Zofran) Ondansetron Other: See Comments Cardiac arrhythmias, dizziness. (was given with Levaquin) Zolpidem Mental Status Change Hallucinations MEDICATIONS: Multivitamin capsule Take 1 capsule by mouth once daily. omega 4-kuu-afs-fish oil 300 mg (120 mg- 180mg)-1,000 mg cpDR Take 1 capsule by mouth once daily. aspirin, enteric coated (ASPIRIN, ENTERIC COATED) 81 mg EC tablet Take 81 mg by mouth once daily. apixaban (ELIQUIS) 5 mg tab(s) Take by mouth twice daily. simvastatin (ZOCOR) 20 mg tablet Take 20 mg by mouth daily at bedtime. amiodarone (PACERONE) 200 mg tablet Take 200 mg by mouth once daily. metoprolol tartrate, short acting, (LOPRESSOR) 25 mg tablet Take 25 mg by mouth twice daily. REVIEW OF SYSTEMS: Review of Systems Constitutional: Positive for malaise/fatigue. Negative for chills, fever and weight loss. HENT: Negative for ear pain, hearing loss, nosebleeds, sinus pain, sore throat and tinnitus. Eyes: Negative for blurred vision, double vision, photophobia and pain. Respiratory: Positive for shortness of breath. Negative for cough, hemoptysis, sputum production and wheezing. Cardiovascular: Negative for chest pain, palpitations, orthopnea, claudication, leg swelling and PND. Gastrointestinal: Negative for abdominal pain, blood in stool, melena, nausea and vomiting. Genitourinary: Negative for dysuria and hematuria. Musculoskeletal: Negative for falls and myalgias. Skin: Negative for rash. Neurological: Negative for dizziness, tremors, focal weakness, seizures and loss of consciousness. Endo/Heme/Allergies: Does not bruise/bleed easily. Psychiatric/Behavioral: Negative for depression, hallucinations, memory loss and substance abuse. The patient is not nervous/anxious. PHYSICAL EXAMINATION: BP 152/94 Pulse 77 Resp 16 Ht 5' 6 (1.68m) Wt 210 lb (95.3kg) SpO2 97% BMI 33.91 kg/(m^2). Physical Exam Constitutional: She is oriented to person, place, and time and well-developed, well-nourished, and in no distress. HENT: Head: Normocephalic and atraumatic. Eyes: EOM are normal. Neck: No JVD present. Cardiovascular: Normal rate. An irregularly irregular rhythm present. Exam reveals no friction rub. No murmur heard. Pulmonary/Chest: Effort normal and breath sounds normal. No respiratory distress. She has no wheezes. She has no rales. Abdominal: Soft. Bowel sounds are normal. There is no abdominal tenderness. Musculoskeletal: General: No edema. Cervical back: Neck supple. Neurological: She is alert and oriented to person, place, and time. Skin: Skin is warm and dry. No rash noted. Psychiatric: Mood and affect normal. CARDIOVASCULAR MEDICINE TESTING: Electrocardiogram: Atrial fibrillation with controlled ventricular response, average 77 bpm; nonspecific ST and T wave abnormality; conduction intervals and QTc appropriate on amiodarone I have personally reviewed the Electrocardiogram. ASSESSMENT/PLAN: 1. Persistent atrial fibrillation (HCC) - ICD9: 427.31, ICD10: I48.19 (primary diagnosis) 2. penitentiary current use of antiarrhythmic drug - ICD9: V58.69, ICD10: Z79.899 3. 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 - ICD9: V58.69, ICD10: Z79.899 4. At risk for stroke - ICD9: V15.89, ICD10: Z91.89 5. Anticoagulant long-term use - ICD9: V58.61, ICD10: Z79.01 6. Obstructive sleep apnea - ICD9: 327.23, ICD10: G47.33 7. Obesity, Class I, BMI 30-34.9 - ICD9: 278.00, ICD10: E66.9 IMPRESSION: Ms. Ernst has persistent atrial fibrillation that recurred quickly after electrical cardioversion and even with treatment with antiarrhythmic drug amiodarone. I am not optimistic that other antiarrhythmic drugs will be effective given the failure of amiodarone. Antiarrhythmic drug options are quite limited due to the CAD, even though not obstructive. I think the primary consideration at this point is whether she should be treated with a rhythm control or a rate control treatment approach. This decision is based upon whether or not she has substantial impact on quality of life (bothersome s ymptoms) attributed to the arrhythmia. It is entirely possible that her exertional shortness of breath is due to the atrial fibrillation. She thinks that possibly the amiodarone is also contributing to her symptoms and this is possible although I do not feel that she likely has pulmonary toxicity. I think that given her relatively young age it seems reasonable to consider her to have symptomatic atrial fibrillation and treat her with a rhythm control approach. As stated above, antiarrhythmic drug options are limited and I am not optimistic about the potential efficacy given the failure of amiodarone. Therefore, catheter ablation of the atrial fibrillation is a very reasonable consideration. Other measures might also be effective for her, particularly with regards to the sleep apnea. I encouraged her to continue to adhere to the CPAP therapy for the sleep apnea, and told her that such treatment has been associated with a reduction in the tendency for atrial fibrillation. Weight loss is also an important measure for reduction of risk for atrial fibrillation. She seems to be very committed to working on weight reduction. I had a detailed discussion with Ms. Ernst regarding atrial fibrillation and its management. I reviewed the cornerstones of management including stroke prevention, ventricular response rate control and atrial rhythm control. The risk:benefit of oral anticoagulation therapy seems to be favorable. Later this year she will have a [id number] score of 3 when she turns 66 years of age. I did tell her that regardless of what we do with the atrial fibrillation, even suppression of it with catheter ablation, that she will most likely need to continue oral anticoagulation therapy indefinitely. This isdue to the fact that the decision regarding stroke prevention for atrial fibrillation per practice [facility] is based primarily on risk profile and not atrial fibrillation burden . I had a detailed discussion with Ms. Ernst regarding my evaluation and recommendations. After our discussion, Ms. Ernst expressed her understanding and I answered all her questions to her apparent satisfaction. She expressed a great deal of interest in pursuing catheter ablation. I did discuss withher this procedure in detail, with a discussion of the rationale for the procedure, the aspects of the procedure itself, recovery, and such. Also discussed R/B/A. I provided her with educational literature and also guided her to educational materials on the [facility] web site. She will review this information and give my recommendation some thought, but stated she would most likely want to proceed with catheter ablation. PLAN AND RECOMMENDATIONS: Considering catheter ablation for atrial fibrillation. I believe she is a very reasonable candidateand this option is preferable to medical therapy. She will contact my office if she wishes to proceed. The amiodarone is ineffective so would recommend discontinuing it. 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 At risk for stroke Other specified personal history presenting hazards to health Anticoagulant long-term use Long-term (current) use of anticoagulants Obstructive sleep apnea Obstructive sleep apnea (adult) (pediatric) Obesity, Class I, BMI 30-34.9 Obesity, unspecified Diagnosis Persistent atrial fibrillation (HCC)- Primary Atrial fibrillation Anticoagulant long-term use Long-term (current) use of anticoagulants Summary Purpose Family History No Family History Records FoundNo Family History Records FoundNo Family History Records FoundNo Family History Records FoundNo Family History Records Found Advance Directives No Advanced Directives Records FoundDocuments on File Type Date Recorded 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 anation Advance Directive(s) 08/24/2020 6:16 AM Advance Directive(s) 08/24/2020 6:26 AM Documents on File Type Date Recorded 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 anation Advance Directive(s) 08/24/2020 6:26 AM Additional Source Comments Source Comments (unrecognize d section and content) In the event this informatio n is protected by the Federal Confidentiality of Alcohol and Drug Abuse Patient Records regulations: The Federal rules restrict any use of the information to criminally investigate or prosecute any alcohol or drug abuse patient.[facility] the event this information is protected by the Federal Confidentiality of Alcohol and Drug Abuse Patient Records regulations: The Federal rules restrict any use of the information to criminally investigate or prosecute any alcohol or drug abuse patient.[facility] the event this information is protected by the Federal Confidentiality of Alcohol and Drug Abuse Patient Records regulations: The Federal rules restrict any use of the information to criminally investigate or prosecute any alcohol or drug abuse patient.[facility] the event this information is protected by the Federal Confidentiality of Alcohol and Drug Abuse Patient Records regulations: The Federal rules restrict any use of the information to criminally investigate or prosecute any alcohol or drug abuse patient.[facility] the event this information is protected by the Federal Confidentiality of Alcohol and Drug Abuse Patient Records regulations: The Federal rules restrict any use of the information to criminally investigate or prosecute any alcohol or drug abuse patient.[facility] the event this information is protected by the Federal Confidentiality of Alcohol and Drug Abuse Patient Records regulations: The Federal rules restrict any use of the information to criminally investigate or prosecute any alcohol or drug abuse patient.[facility] the event this information is protected by the Federal Confidentiality of Alcohol and Drug Abuse Patient Records regulations: The Federal rules restrict any use of the information to criminally investigate or prosecute any alcohol or drug abuse patient.[facility] the event this information is protected by the Federal Confidentiality of Alcohol and Drug Abuse Patient Records regulations: The Federal rules restrict any use of the information to criminally investigate or prosecute any alcohol or drug abuse patient.[facility] Hospital[facility] the event this information is protected by the Federal Confidentiality of Alcohol and Drug Abuse Patient Records regulations: The Federal rules restrict any use of the information to criminally investigate or prosecute any alcohol or drug abuse patient.[facility] Hospital[facility] the event this information is protected by the Federal Confidentiality of Alcohol and Drug Abuse Patient Records regulations: The Federal rules restrict any use of the information to criminally investigate or prosecute any alcohol or drug abuse patient.[facility] Hospital[facility] the event this information is protected by the Federal Confidentiality of Alcohol and Drug Abuse Patient Records regulations: The Federal rules restrict any use of the information to criminally investigate or prosecute any alcohol or drug abuse patient.[facility] Hospital[facility] the event this information is protected by the Federal Confidentiality of Alcohol and Drug Abuse Patient Records regulations: The Federal rules restrict any use of the information to criminally investigate or prosecute any alcohol or drug abuse patient.[facility] Hospital[facility] the event this information is protected by the Federal Confidentiality of Alcohol and Drug Abuse Patient Records regulations: The Federal rules restrict any use of the information to criminally investigate or prosecute any alcohol or drug abuse patient.[facility] Hospital[facility] the event this information is protected by the Federal Confidentiality of Alcohol and Drug Abuse Patient Records regulations: The Federal rules restrict any use of the information to criminally investigate or prosecute any alcohol or drug abuse patient.[facility] Hospital[facility] the event this information is protected by the Federal Confidentiality of Alcohol and Drug Abuse Patient Records regulations: The Federal rules restrict any use of the information to criminally investigate or prosecute any alcohol or drug abuse patient.[facility] Hospital[facility] the event this information is protected by the Federal Confidentiality of Alcohol and Drug Abuse Patient Records regulations: The Federal rules restrict any use of the information to criminally investigate or prosecute any alcohol or drug abuse patient.[facility] HospitalIn the event this information is protected by the Federal Confidentiality of Alcohol and Drug Abuse Patient Records regulations: The Federal rules restrict any use of the information to criminally investigate or prosecute any alcohol or drug abuse patient.[facility] Reason for Visit (unrecogniz ed section and content) Reason Comments Patient Update Reason Comments Preparations For Procedures Complete EPS & PVI Ablation Reason Comments CARD Follow Up 6 Month FOLLOW UP FOR A-F IB Reason Comments Established Patient Nail Fungus Reason Comments Patient Question Soaking feet post to enail removal Reason Comments Follow Up Avulsion Myrtle Araya Ma, MA - 07/06/2020 1:23 PM EST Nursing Notes (unrecognized section and content) Patient has no cardiac complaints today. documented in this encounter Telephone Encounter - Justino Cr - 07/25/2020 10:42 AM ESTTelephone Encounter - Ashleigh Gonzalez - 07/23/2020 8:41 AM ESTTelephone Encounter - Mely Arielle - 08/12/2020 9:10 AM EST Miscellaneous Notes (unrecog nized section and content) Reviewed case. She is indeed a candidate for atrial fibrillation catheter ablation. Procedure request submitted. She should stop amiodarone now if she hasn't already. She should not interrupt the Eliquis, even on the morning of the procedure. Justino Cr MD July 25, 2020 10:43 AM Pt calls to report she is willing to proceed with catheter ablation if after reviewing her records you feel this is the best treatment option. Ashleigh Gonzalez RN documented in this encounter Patient is scheduled for Complete EPS & PVI Ablation on 08/24/[address] Cr. Hospital will call day before between 2-5pm with arrival time. Patient should not eat or drink after midnight day before procedure. 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 Patient should continue to take medications as prescribed morning of procedure with just a sip of water unless otherwise instructed. She is already on Eliquis and should not interrupt this, and should take the dose even on the morning of the procedure. Patient has already stopped the Amiodarone. Patient answered NO to all of the COVID-19 screening questions. Patient was informed that he/she is at an increased risk for COVID-19 by coming into the hospital but was assured that all necessary precautions are being taken to insure the safety of all patients. Patient will need tested for COVID-19 prior to her procedure and is scheduled for 08/21/20 @ 4pm for testing and at 2:30pm with Floyd Moura for H&P Update. Spoke with patient, she verbalized understanding of all instructions given. Arielle Boone documented in this encounter INFORMATION SOURCE (unrecogn ized section and content) DATE CREATED AUTHOR AUTHOR'S ORGANIZ ATION 05/10/2022 [facility] ([place]) DATE CREATED AUTHOR AUTHOR'S ORGANIZ ATION 12/05/2022 [facility] DATE CREATED AUTHOR AUTHOR'S ORGANIZ ATION 06/02/2023 [facility] DATE CREATED AUTHOR AUTHOR'S ORGANIZ ATION 07/26/2023 [facility] Care Teams (unrecognized sec tion and content) Light Oil Operator Relationship Specialty Start Date End Date Geri Fernandes [address] [place] [address] [place] [address] PCP - General Family Medicine 11/27/20 Sarbjit Cohn [address] [place] [address] Specialty Communications Consultant Cardiology 07/03/20 [place], [place] S [address] [place] [address] Specialty Communications Consultant Cardiology 07/03/20 Justino Cr MD [address] [place] [address] Specialty Communications Consultant Cardiology 03/01/21 Light Oil Operator Relationship Specialty Start Date End Date Geri Fernandes [address] [place] [address] [place] [address] PCP - General Family Medicine 11/27/20 Sarbjit Cohn [address] [place] [address] Specialty Communications Consultant Cardiology 07/03/20 [place], [place] S [address] [place] [address] Specialty Communications Consultant Cardiology 07/03/20 Justino Cr MD [address] [place] [address] Specialty Communications Consultant Cardiology 03/01/21 Light Oil Operator Relationship Specialty Start Date End Date Geri Fernandes [address] [place] [address] PCP - General Family Medicine 11/27/20 Sarbjit Cohn [address] [place], [place] [id number] Specialty Communications Consultant Cardiology 07/03/20 [place] S [address] [facility] [address] [place] [address] Specialty Communications Consultant Cardiology 07/03/20 Justino Cr MD [address] [facility] [address] [place] [address] Specialty Communications Consultant Cardiology 03/01/21 FOR RECORDS PERTAINING TO PATIENTS WHO ARE OR HAVE BEEN ENROLLED IN A CHEMICAL DEPENDENCY/SUBSTANCEABUSE PROGRAM, SOME INFORMATION MAY BE OMITTED. This clinical summary was aggregated from multiple sources. Caution should be exercised in using it in the provision of clinical care. This summary normalizes information from multiple sources, and as a consequence, information in this document may materially change the coding, format and clinical context of patient data. In addition, data may be omitted in some cases. CLINICAL DECISIONS SHOULD BE BASED ON THE PRIMARY CLINICAL RECORDS. [employer] provides no warranty or guarantee of the accuracy or completeness of information in this document.
== END | disposition home or self-care (01) ==
PROVIDERS: PCP Family Medicine; Referring Provider Nurse Practitioner Acute Care; Visit Provider Nurse Practitioner Acute Care
DX: G47.33 Obstructive sleep apnea (adult) (pediatric) (principal)
CPT/HCPCS: 95806

== ENCOUNTER → 2023-10-30 | Outpatient (CLI) | payer MEDICARE, MEDICAID, SELFPAY ==
--- NOTE | 2023-10-30 13:51 | CT_ITS ---
STUDY: LOW DOSE CT LUNG CANCER SCREENING REASON FOR EXAM: Female, 68 years old. Former smoker. Patient smokes half a pack per day for 50 years. RADIATION DOSAGE (If Supplied By Facility): CTDIvol = ( 4.02 ) mGy, DLP = ( 141.95 ) mGycm TECHNIQUE: No contrast was administered. Low dose technique was utilized (average mAS-38 and kVp 120). 1.25 mm axial source images with a slice interval of 1.25-mm were reconstructed in lung windows. 2.5 mm axial source images with a slice interval of 2.5-mm were reconstructed in lung windows. 5.0 mm axial source images with a slice interval of 5.0-mm were reconstructed in soft tissue windows. COMPARISON: Comparison is made with prior study dated October 27, 2022. NODULES: Stable 3 mm pleural-based nodule in the left lower lobe as well as in the peripheral aspect of the right lower lobe. Emphysema: Stable mild scarring along the posterior aspect of the lingular segment of the left upper lobe abutting the fissure. Endobronchial lesion: None Aorta: Mild atherosclerotic plaque formation of the aortic arch. CORONARY ARTERIES: Coronary artery calcification is seen. Heart: Unremarkable Pulmonary artery: Unremarkable Mediastinal nodes: Small mediastinal lymph nodes. Other chest and abdominal findings: Degenerative changes of the visualized thoracic vertebrae. CT/Low Dose CT Lung Screening IMPRESSION: Lung-RADS category 2 - Continue annual screening with LDCT in 12 months. IMPORTANT NOTES FOR USE: ACR Lung-RADS Version 1.1 Assessment Categories Release Date: 2018 Category: Coded 0-4 bases on nodule(s) with highest degree of suspicion. Negative screen is defined as categories 1 and 2; a positive screen is defined as categories 3 and 4. Category 3 and 4A nodules that are unchanged on interval CT should be coded as category 2, and individuals returned to screening in 12 months. Category 4X: Category 3 or 4 nodules with additional imaging findings that increase the suspicion of lung cancer, such as spiculation, GGN that doubles in size in 1 year, enlarged lymph notes, etc. Category Modifiers: S (significant finding unrelated to lung cancer) Electronically Signed: Rodolfo Trent MD at 14:03 EDT ,
== END | disposition home or self-care (01) ==
LOC: CT 13:48
PROVIDERS: PCP Family Medicine; Referring Provider Nurse Practitioner Acute Care; Visit Provider Nurse Practitioner Acute Care
DX: Z12.2 Encounter for screening for malignant neoplasm of respiratory organs (principal); F17.210 Nicotine dependence, cigarettes, uncomplicated
CPT/HCPCS: 71271

== ENCOUNTER → 2023-10-31 | Outpatient (CLI) | payer MEDICARE, MEDICAID, SELFPAY ==
[2023-10-31 11:08] LABS: AST(SGOT) 15 U/L (15-37); Alanine Aminotransfer ALT/SGPT 19 U/L (13-56); Albumin, Serum 3.6 g/dL (3.2-5.0); Alkaline Phosphatase 83 U/L (45-117); Bilirubin, Direct 0.29 mg/dL (0.00-0.30); Cholesterol 125 mg/dL (200); Globulin 3.8 g/dL (2.2-4.2); High Density Lipoprotein 40 mg/dL; Protein, Total 7.4 g/dL (6.4-8.2); Triglycerides 126 mg/dL; Very Low Density Lipoprotein 25 mg/dL (5-40)
== END | disposition home or self-care (01) ==
LOC: LAB 08:18
PROVIDERS: PCP Family Medicine; Referring Provider Nurse Practitioner Family; Visit Provider Nurse Practitioner Family
DX: E78.00 Pure hypercholesterolemia, unspecified (principal)
CPT/HCPCS: 36415; 80061; 80076

== ENCOUNTER → 2024-05-27 | Outpatient (CLI) | payer MEDICARE, MEDICAID, SELFPAY ==
[2024-05-27 11:00] LABS: AST(SGOT) 13 U/L (15-37); Alanine Aminotransfer ALT/SGPT 22 U/L (13-56); Albumin, Serum 3.8 g/dL (3.2-5.0); Alkaline Phosphatase 82 U/L (45-117); Cholesterol 159 mg/dL (200); Globulin 3.6 g/dL (2.2-4.2); High Density Lipoprotein 46 mg/dL; Protein, Total 7.4 g/dL (6.4-8.2); Triglycerides 276 mg/dL; Very Low Density Lipoprotein 55 mg/dL (5-40)
== END | disposition home or self-care (01) ==
PROVIDERS: PCP Family Medicine; Referring Provider Nurse Practitioner Family; Visit Provider Nurse Practitioner Family
DX: E78.00 Pure hypercholesterolemia, unspecified (principal)
CPT/HCPCS: 36415; 80061; 80076

== ENCOUNTER → 2024-10-30 | Outpatient (CLI) | payer MEDICARE, MEDICAID, SELFPAY ==
--- NOTE | 2024-10-30 07:42 | CT_ITS ---
PROCEDURE: LOW DOSE CT LUNG SCREENING 10/30/2024 REASON FOR EXAM: H/O TOBACCO DEPENDENCY TECHNIQUE: Low Dose CT Lung screening without contrast. Coronal and Sagittal reconstruction series were provided. One or more dose reduction techniques were used (e.g., Automated exposure control, adjustment of the mA and/or kV according to patient size, use of iterative reconstruction technique). REFERENCE LINK: [facility] Lung-RADS RADIATION DOSE SUMMARY: CTDlvol: 3.0 mGy DLP: 108 mGycm COMPARISON: CT chest on 10/30/2019 FINDINGS: Pulmonary Nodules: There are few solid pulmonary nodules, the largest measuring 3 mm in the right lower lobe, unchanged. Lymph Nodes:No significant lymphadenopathy. Heart and Vasculature:Heart is mildly enlarged, unchanged. Wldi-kn-hbccutam coronary calcifications. Lungs and Airways: Pleura:No effusion. Upper Abdomen:Status post cholecystectomy. Colonic diverticulosis. Bones:Degenerative changes of the thoracic spine. Anterior flowing osteophytes suggestive of DISH. CT/Low Dose CT Lung Screening IMPRESSION: Lung-RADS Category: 2 BENIGN (BASED ON IMAGING FEATURES OR INDOLENT BEHAVIOR). RECOMMEND 12-MONTH SCREENING LDCT. Other Significant Findings: [id number] multivessel coronary calcification s.. Reading Location: [facility]
[2024-10-30 08:25] LABS: AST(SGOT) 19 U/L (<=31); Alanine Aminotransfer ALT/SGPT 10 U/L (<=34); Albumin, Serum 4.2 g/dL (3.4-4.8); Alkaline Phosphatase 83 U/L (35-104); Bilirubin, Direct 0.47 mg/dL (0.00-0.30); Cholesterol 195 mg/dL (<=200); High Density Lipoprotein 39 mg/dL; Low Density Lipoprotein Calc. 113 mg/dL; Protein, Total 7.2 g/dL (5.9-8.4); Total Bilirubin 1.48 mg/dL (0.00-1.30); Triglycerides 215 mg/dL; Very Low Density Lipoprotein 43 mg/dL (5-40); cholesterol:hdl ratio screen 4.99
== END | disposition home or self-care (01) ==
LOC: CT 07:25
PROVIDERS: Nurse Practitioner Family; PCP Family Medicine; Referring Provider Internal Medicine Critical Care Medicine; Visit Provider Internal Medicine Critical Care Medicine
DX: Z12.2 Encounter for screening for malignant neoplasm of respiratory organs (principal); F17.210 Nicotine dependence, cigarettes, uncomplicated; E78.00 Pure hypercholesterolemia, unspecified
CPT/HCPCS: 36415; 71271; 80061; 80076

== ENCOUNTER → 2025-04-26 | Outpatient (CLI) | payer MEDICARE, MEDICAID, SELFPAY ==
[2025-04-26 09:58] LABS: AST(SGOT) 16 U/L (<=31); Alanine Aminotransfer ALT/SGPT 10 U/L (<=34); Albumin, Serum 4.1 g/dL (3.4-4.8); Alkaline Phosphatase 75 U/L (35-104); Bilirubin, Direct 0.39 mg/dL (0.00-0.30); Cholesterol 157 mg/dL (<=200); Globulin 3.0 g/dL (2.2-4.2); Low Density Lipoprotein Calc. 100 mg/dL; Triglycerides 96 mg/dL; Very Low Density Lipoprotein 19 mg/dL (5-40); cholesterol:hdl ratio screen 4.04
== END | disposition home or self-care (01) ==
LOC: LAB 08:10
PROVIDERS: PCP Family Medicine; Visit Provider Nurse Practitioner Family
DX: E78.00 Pure hypercholesterolemia, unspecified (principal)
CPT/HCPCS: 36415; 80061; 80076